=== PATIENT | female | born 1970 | race Caucasian/White ===

== ENCOUNTER → 2018-12-09 | Outpatient (CLI) | payer OTHER ==
--- NOTE | 2018-12-11 14:13 | MM ---
Reason for exam: screening (asymptomatic). Last mammogram was performed 2 years and 7 months ago. History: Patient is postmenopausal. Benign right mammotome panel of the right breast, July 28, 2009. Physical Findings: A clinical breast exam by your physician is recommended on an annual basis and results should be correlated with mammographic findings. MG 3D Screening Mammo W/Cad Bilateral CC and MLO view(s) were taken. XCCL view(s) were taken of the right breast. Prior study comparison: April 29, 2016, bilateral MG screening mammo w CAD. September 04, 2010, CAD bilateral diagnostic mammogram. The breast tissue is heterogeneously dense. This may lower the sensitivity of mammography. Previous mammotome biopsy in the right breast. No significant changes when compared with prior studies. ASSESSMENT: Benign, BI-RAD 2 RECOMMENDATION: Routine screening mammogram of both breasts in 1 year.
== END | disposition home or self-care (01) ==
LOC: RADMAMWWP 13:30
PROVIDERS: ATTEND Family Medicine
DX: Z12.31 Encounter for screening mammogram for malignant neoplasm of breast (principal)
CPT/HCPCS: 77063; 77067

== ENCOUNTER → 2020-02-03 | Outpatient (CLI) | payer OTHER ==
--- NOTE | 2020-02-04 14:45 | MM ---
Reason for exam: screening (asymptomatic). Last mammogram was performed 1 year and 2 months ago. History: Patient is postmenopausal. Benign right mammotome panel of the right breast, July 28, 2009. Physical Findings: A clinical breast exam by your physician is recommended on an annual basis and results should be correlated with mammographic findings. MG Screening Mammo w CAD Bilateral CC and MLO view(s) were taken. Prior study comparison: December 09, 2018, bilateral MG 3d screening mammo w/cad. April 29, 2016, bilateral MG screening mammo w CAD. The breast tissue is heterogeneously dense. This may lower the sensitivity of mammography. Previous mammotome biopsy in the right breast. ASSESSMENT: Benign, BI-RAD 2 RECOMMENDATION: Routine screening mammogram of both breasts in 1 year.
== END | disposition home or self-care (01) ==
LOC: RADMAMWWP 07:13
PROVIDERS: ATTEND Family Medicine
DX: Z12.31 Encounter for screening mammogram for malignant neoplasm of breast (principal)
CPT/HCPCS: 77067

== ENCOUNTER → 2022-06-05 | Outpatient (CLI) | payer OTHER ==
--- NOTE | 2022-06-06 19:30 | MM ---
Reason for Exam: Screening (asymptomatic). Last mammogram was performed 2 year(s) and 4 month(s) ago. Patient History: Menarche at age 15. First Full-Term at age 19. Hysterectomy at age 39. Postmenopausal. Patient has history of breast feeding. 07/28/2009, Benign Core Biopsy on the right side. Risk Values: Vianey 5 year model risk: 1.0%. NCI Lifetime model risk: 8.4%. Prior Study Comparison: 10/31/2005 Right Diagnostic Ultrasound, [facility]. 05/06/2006 Right Diagnostic Mammogram, [facility]. 05/06/2006 Right Diagnostic Ultrasound, [facility]. 11/07/2006 Bilateral Diagnostic Mammogram, [facility]. 07/13/2009 Bilateral Screening Mammogram, [facility]. 07/19/2009 Right Diagnostic Mammogram, [facility]. 09/04/2010 Bilateral Diagnostic Mammogram, [facility]. 04/29/2016 Bilateral Screening Mammogram, [facility]. 12/09/2018 Bilateral Screening Mammogram, [facility]. 02/03/2020 Bilateral Screening Mammogram, [facility]. Tissue Density: The breast tissue is heterogeneously dense. This may lower the sensitivity of mammography. Findings: Analyzed By CAD. Microclip right breast from prior biopsy. There is no suspicious group of microcalcifications or new suspicious mass in either breast. Overall Assessment: Negative, BI-RAD 1 Management: Screening Mammogram of both breasts in 1 year. 1. Patient should continue monthly self breast exams. 2. A clinical breast exam by your physician is recommended on an annual basis. 3. This exam should not preclude additional follow-up of suspicious palpable abnormalities. Electronically signed and approved by: Maximiliano Arnold M.D. Radiologist
== END | disposition home or self-care (01) ==
LOC: RADMAMWWP 16:08
PROVIDERS: ATTEND Family Medicine
DX: Z12.31 Encounter for screening mammogram for malignant neoplasm of breast (principal); Z78.0 Asymptomatic menopausal state
CPT/HCPCS: 77067

== ENCOUNTER 2022-06-13 09:40 | Day surgery (SDC) | payer OTHER ==
[2022-06-11 15:24] VITALS: BMI 33.6
[~2022-06-13 09:40] MED LIST: LACTATED RINGERS 1,000 ML IV SCH
[2022-06-13 10:33] VITALS: RESP 18; TEMP 96.9
[2022-06-13] MEDS ORDERED: ONDANSETRON 4 MG/2 ML VIAL ONE (10:34)
[2022-06-13] MEDS ORDERED: ONDANSETRON 4 MG/2 ML VIAL IVP ONE (10:43)
[2022-06-13] MEDS ORDERED: PROPOFOL 10 MG/ML 20 ML VIAL IV ONE (11:05)
--- NOTE | 2022-06-13 11:07 | P.GSHP ---
History of Present Illness H&P Date: 06/13/22 Chief Complaint: Screening colonoscopy 's is a 52-year-old female who presents today for screening colonoscopy. Patient denies any significant GI complaints. Past Medical History Past Medical History: GERD/Reflux, Hypertension Additional Past Medical History / Comment(s): FIBROMYALGIA, headache, CELIAC History of Any Multi-Drug Resistant Organisms: None Reported Past Surgical History: Hysterectomy Past Anesthesia/Blood Transfusion Reactions: Postoperative Nausea & Vomiting (PONV) Smoking Status: Current every day smoker - Past Family History Mother Family Medical History: Hypertension Medications and Allergies Home Medications Medication Instructions Recorded Confirmed Type Gabapentin [Neurontin] 300 mg PO HS 08/17/15 06/13/22 History Metoprolol Succinate [Toprol XL] 200 mg PO HS 08/17/15 06/13/22 History Omeprazole [PriLOSEC] 20 mg PO HS 08/17/15 06/13/22 History Amitriptyline HCl [Elavil] 50 mg PO HS 06/11/22 06/13/22 History Venlafaxine HCl [Effexor XR] 150 mg PO HS 06/11/22 06/13/22 History amLODIPine [Norvasc] 5 mg PO HS 06/11/22 06/13/22 History lisinopriL 40 mg PO HS 06/11/22 06/13/22 History Allergies Allergy/AdvReac Type Severity Reaction Status Date / Time oxytocin [From Pitocin] Allergy VERY Verified 06/13/22 10:30 HYPOTENSIVE Penicillins Allergy Anaphylaxis Verified 06/13/22 10:30 potassium Allergy Unknown Verified 06/13/22 10:36 Surgical - Exam Vital Signs Temp Pulse Resp BP Pulse Ox 96.9 F L 84 18 126/81 98 06/13/22 10:28 06/13/22 10:28 06/13/22 10:28 06/13/22 10:28 06/13/22 10:28 - General well developed, well nourished, no distress - Eyes PERRL - ENT normal pinna - Neck no masses - Respiratory normal expansion - Abdomen Abdomen: soft, non tender Assessment and Plan Assessment: We'll perform screening colonoscopy
--- NOTE | 2022-06-13 11:24 | P.OP ---
Date of Procedure: 06/13/22 Preoperative Diagnosis: Screening colonoscopy Postoperative Diagnosis: : Left colon polyp Procedure(s) Performed: Colonoscopy Anesthesia: MAC Surgeon: Lazaro Rahman Pathology: other (Left colon polyp) Condition: stable Disposition: PACU Description of Procedure: The patient's placed on the endoscopy table in the lateral position. She received IV sedation. Digital rectal exam was performed. This revealed no ebonized. The flexible colonoscope was then placed patient anus and passed throughout the entire colon. The ileocecal valve was visualized. The cecum, ascending and transverse colon appeared normal. In the left descending colon there was a polyp seen was removed with the cold forcep. Scope was brought back and the sigmoid colon this appeared normal. Scope brought back the rectum and this was normal. Scope was withdrawn for patient.
[2022-06-13 11:37] VITALS: BP 117/76; PULSE 71
== END 2022-06-13 11:58 | disposition home or self-care (01) ==
LOC: ORWHC2ENDO 09:40
PROVIDERS: ATTEND Surgery
DX: Z12.11 Encounter for screening for malignant neoplasm of colon (principal); D12.4 Benign neoplasm of descending colon; K21.9 Gastro-esophageal reflux disease without esophagitis; I10 Essential (primary) hypertension; M79.7 Fibromyalgia; K91.0 Vomiting following gastrointestinal surgery; F17.200 Nicotine dependence, unspecified, uncomplicated; K90.0 Celiac disease; Z90.710 Acquired absence of both cervix and uterus; Z82.49 Family history of ischemic heart disease and other diseases of the circulatory system; Z79.899 Other long term (current) drug therapy; Z79.1 Long term (current) use of non-steroidal anti-inflammatories (NSAID); Z88.0 Allergy status to penicillin; Z88.7 Allergy status to serum and vaccine; Z88.1 Allergy status to other antibiotic agents
CPT/HCPCS: 88305; 45380; J2405; J2704

== ENCOUNTER 2022-07-06 19:55 | Inpatient (IN) | payer OTHER ==
[2022-07-06] MEDS ORDERED: MAGNESIUM SULFATE-D5W PMX 1 GM in DEXTROSE/WATER 1 100ML.BAG IVPB ONE (20:20)
[2022-07-06] MEDS ORDERED: methylPREDNISolone SOD SUCCI 125 MG/2 ML VIAL IV STA (20:23)
--- NOTE | 2022-07-06 20:36 | ED ---
SOB HPI - General Chief Complaint: Shortness of Breath Stated Complaint: Sepsis Time Seen by Provider: 07/06/22 20:00 Source: patient, EMS, RN notes reviewed Mode of arrival: EMS - History of Present Illness Initial Comments: 52-year-old female with a history of smoking but no known history of lung disease or heart disease who since June 29 is had 4 visits to [facility] for various symptoms initially for headache but then later respiratory type symptoms. She presented today ultimately to [facility] for shortness of breath she was evaluated there and found have a left lower lobe pneumonia as well as influenza type A. Rocaltrol totally indicative of a bacterial infection she'll likely both are occurring at same time she also was found have an elevated white blood cell count follow found to be hypokalemic and hyponatremic. She did require BiPAP. She was given vancomycin IV as well as Maxipime. She was transferred here for further evaluation and care. Patient was found to be hypotensive and did require fluids. Upon arrival her blood pressure appeared to lives at. Patient does states she's feeling better at this time. No chest pain MD Complaint: shortness of breath, cough - Related Data Home Medications Medication Instructions Recorded Confirmed Gabapentin [Neurontin] 300 mg PO HS 08/17/15 07/06/22 Metoprolol Succinate [Toprol XL] 200 mg PO HS 08/17/15 07/06/22 Omeprazole [PriLOSEC] 20 mg PO BID 08/17/15 07/06/22 Amitriptyline HCl [Elavil] 10 mg PO HS 06/11/22 07/06/22 Venlafaxine HCl [Effexor XR] 150 mg PO HS 06/11/22 07/06/22 amLODIPine [Norvasc] 5 mg PO HS 06/11/22 07/06/22 lisinopriL 40 mg PO HS 06/11/22 07/06/22 Zolpidem [Ambien] 5 mg PO HS PRN 07/06/22 07/06/22 traMADol HCL 50 mg PO Q6H PRN 07/06/22 07/06/22 Allergies Allergy/AdvReac Type Severity Reaction Status Date / Time oxytocin [From Pitocin] Allergy VERY Verified 07/06/22 21:13 HYPOTENSIVE Penicillins Allergy Anaphylaxis Verified 07/06/22 21:13 potassium Allergy Unknown Verified 07/06/22 21:13 Review of Systems ROS Statement: Those systems with pertinent positive or pertinent negative responses have been documented in the HPI. ROS Other: All systems not noted in ROS Statement are negative. Past Medical History Past Medical History: GERD/Reflux, Hypertension Additional Past Medical History / Comment(s): FIBROMYALGIA, headache, cilliac History of Any Multi-Drug Resistant Organisms: None Reported Past Surgical History: Hysterectomy Past Anesthesia/Blood Transfusion Reactions: Postoperative Nausea & Vomiting (PONV) Past Psychological History: No Psychological Hx Reported Smoking Status: Former smoker Past Alcohol Use History: None Reported - Past Family History Mother Family Medical History: Hypertension General Exam - General Exam Comments Initial Comments: This a well-developed well-nourished awake alert oriented 4 female demonstrating cough. She is on BiPAP at this time. General appearance: alert, anxious, in distress Head exam: Present: atraumatic, normocephalic, normal inspection Eye exam: Present: normal appearance, PERRL, EOMI. Absent: scleral icterus, conjunctival injection, periorbital swelling ENT exam: Present: normal exam, mucous membranes moist Neck exam: Present: normal inspection, full ROM, other (ALLERGIES or bruits). Absent: tenderness, meningismus, lymphadenopathy Respiratory exam: Present: wheezes (Of lower lobe wheezes or rhonchi.), decreased breath sounds. Absent: respiratory distress, rales, rhonchi, stridor Cardiovascular Exam: Present: normal rhythm, tachycardia, normal heart sounds. Absent: systolic murmur, diastolic murmur, rubs, gallop, clicks GI/Abdominal exam: Present: soft, normal bowel sounds. Absent: distended, tenderness, guarding, rebound, rigid Extremities exam: Present: normal inspection, full ROM, normal capillary refill. Absent: tenderness, pedal edema, joint swelling, calf tenderness Back exam: Present: normal inspection Neurological exam: Present: alert, oriented X3, CN II-XII intact Psychiatric exam: Present: normal affect, normal mood Skin exam: Present: warm, intact, normal color, diaphoretic. Absent: rash Course Vital Signs 07/06/22 07/06/22 07/06/22 20:07 20:14 22:01 Temperature 97.2 F L Pulse Rate 104 H 100 Respiratory 34 H 18 Rate Blood Pressure 101/64 116/69 O2 Sat by Pulse 95 96 Oximetry Fraction of 50 Inspired Oxygen (FIO2) - Reevaluation(s) Reevaluation #1: 07/06/22 20:36 In addition to the care provided at [facility] patient will get IV magnesium with a level drawn prior. Also IV steroids. I did review the materials presented by paramedics from [facility] patient did have an elevated d-dimer but a negative CT for pulmonary embolism. Medical Decision Making - Medical Decision Making Reevaluation patient several occasions reveals she does feel improved she still on BiPAP but is laboring last with respect to breathing no signs appear to be stable at this time. I did discuss the case with Jose Cid covering for Dr. leach patient be admitted with consultation by Dr. Gorman and infectious disease. Was pt. sent in by a medical professional or institution? @ -Yes transfer from [facility] [by , PA, SATURATION EQUIPMENT OPERATOR, urgent care, hospital, or usp] Did you speak to anyone other than the patient for history? @ Paramedics upon arrival-[EMS, parent, family, police, friend?] Did you review nursing and triage notes? @ Yes I agree with the nursing note-[agree or disagree, why?] Were old charts reviewed? @ Outside facility materials were reviewed by me-[outside hosp., previous admissions, EMS record, old EKG, old radiological studies, urgent care reports/EKGs, usp records?] Differential Diagnosis? @ Pneumonia, bronchospasm, COPD exacerbation, hypotensive episode-[chest pain, altered mental status abdominal pain women, abdominal pain men, vaginal bleeding, weakness, fever, dyspnea, syncope, headache, dizziness, GI bleed, back pain, seizure] EKG interpreted by me (3pts min.)? @ yes-[none] X-rays interpreted by me (1pt min.)? @ Yes -[none] CT interpreted by me (1pt min.)? @ Yes -[none] U/S interpreted by me (1pt. min.)? @ -[none] What testing was considered but not performed? (CT, X-rays, U/S, labs)? Why? @ None [CT, X-rays, U/S, labs? Why?] What meds were considered but not given? Why? @ -[none] Did you discuss the management of the patient with other professionals? @ Yes with Jose Orlando also with the sending physician-[professionals i.e. Dr, PA, SATURATION EQUIPMENT OPERATOR, Lab, RT, Psych Nurse, Critical Systems Technician, Folding Machine Setter, Teacher, Media Technician, nurse case management? Give summary] Did you reconcile home meds? @ -[none] Was smoking cessation discussed for >3mins.? @ -[none] Was critical care preformed (if so, how long)? @ -[none] Were there social determinants of health that impacted care today? How? (Homelessness, low income, unemployed, alcoholism, drug addiction, transportation, low edu. Level, literacy, decrease access to med. care, retirement, rehab)? @ -[Homelessness, low income, unemployed, alcoholism, drug addiction, transportation, low edu. Level, literacy, decrease access to med. care, retirement, rehab?] Was there de-escalation of care discussed even if they declined? (Discuss DNR or withdrawal of care, Hospice)? @ -[Discuss DNR or withdrawal of care, Hospice?] What co-morbidities impacted this encounter? (DM, HTN, Smoking, COPD, CAD, Cancer, CVA, Hep., AIDS, mental health diagnosis, sleep apnea, morbid obesity)? @ -[DM, HTN, Smoking, COPD, CAD, Cancer, CVA, Hep., AIDS, mental health richard gnosis, sleep apnea, morbid obesity?] Was patient admitted / discharged? @ -[hospital course] Undiagnosed new problem with uncertain prognosis? @ -[none] Drug Therapy requiring intensive monitoring for toxicity (Heparin, Nitro, Insulin, Cardizem)? @ -[none] Were any procedures done? @ -[none] Diagnosis/symptom? @ Left pleural pneumonia, influenza A, dehydration, hypotensive episode- [default] Acute, or Chronic, or Acute on Chronic? @ Acute -[default] Uncomplicated (without systemic symptoms) or Complicated (systemic symptoms)? @ -[default] Side effects of treatment? @ -[none] Exacerbation, Progression, or Severe Exacerbation] @ -[no] Poses a threat to life or bodily function? @ Potential threat if untreated-[no] - Lab Data Lab Results 07/06/22 Range/Units 21:02 Magnesium 2.1 (1.6-2.3) mg/dL - EKG Data -: EKG Interpreted by Me EKG Comments: EKG interpreted by me shows a sinus rhythm of 109 sinus tachycardia. Interval 134 QRS duration 86 QT since QTC 320/[address]-T wave changes - Radiology Data Interpreted by me: I did interpret the imaging sent from the hospital evidence a left lower lobe infiltrate no evidence of PE. Disposition Clinical Impression: Left lower lobe pneumonia, Influenza A, Hypotensive episode, Dehydration Disposition: ADMITTED IP TO THIS HOSP Condition: Fair Referrals: Keri Anderson DO [Primary Care Provider] - 1-2 days Decision Date: 07/06/22 Decision Time: 22:00
[2022-07-06] MEDS ORDERED: KETOROLAC 15 MG/ML 1 ML VIAL IVP STA (20:43)
[2022-07-06] MEDS ORDERED: PNEUMONIA PROTOCOL UTILIZED 1 EACH MISC PO PRN (22:38)
[2022-07-06] MEDS ORDERED: VANCOMYCIN IV PER PHARMACY 1 EACH MISC MISCELLANE PRN (22:41)
[2022-07-06] MEDS ORDERED: ZOLPIDEM 5 MG TAB PO PRN (22:44)
[2022-07-06] MEDS ORDERED: VANCOMYCIN 1,500 MG in SODIUM CHLORIDE 0.9% 500 ML 500 ML IVPB ONE (23:00)
[2022-07-06] MEDS: SODIUM CHLORIDE 0.9% 1,000 ML IV SCH (23:39)
[2022-07-06 23:40] LABS: African American GFR (CKD) >90 (>60 ml/min/1.73 sqM); Non-African American GFR(CKD) >90 (>60 ml/min/1.73 sqM)
[2022-07-07] MEDS ORDERED: CEFEPIME 2 GM in SODIUM CHLORIDE 0.9% 100 ML IVPB SCH (01:00)
[2022-07-07] MEDS ORDERED: VANCOMYCIN 1,500 MG in SODIUM CHLORIDE 0.9% 500 ML 500 ML IVPB SCH ×2 (01:00→11:00)
[2022-07-07] MEDS ORDERED: methylPREDNISolone SOD SUCCI 125 MG/2 ML VIAL IV SCH (03:00)
[2022-07-07] MEDS: IPRATROPIUM-ALBUTEROL 3 ML NEB INHALATION SCH ×6 (03:31→20:41)
[2022-07-07] MEDS: METOPROLOL SUCCINATE (ER) 100 MG TAB.ER.24H PO SCH ×2 (04:50→22:05)
[2022-07-07] MEDS: GABAPENTIN 300 MG CAP PO SCH ×2 (04:50→20:59)
[2022-07-07] MEDS: lisinopriL 20 MG TAB PO SCH ×2 (04:50→20:59)
[2022-07-07] MEDS: amLODIPine 5 MG TAB PO SCH ×2 (04:50→20:59)
[2022-07-07] MEDS: VENLAFAXINE HCL ER 150 MG CAP PO SCH ×2 (04:50→22:04)
[2022-07-07] MEDS: AMITRIPTYLINE HCL 10 MG TAB PO SCH ×2 (04:51→22:05)
[2022-07-07 06:06] LABS: Basophils % (A) 0 %; Eosinophils % (A) 0 %; HGB 11.1 gm/dL (11.4-16.0); Lymphocytes # (A) 0.4 k/uL (1.0-4.8); Lymphocytes % (A) 5 %; MCH 33.1 pg (25.0-35.0); MCHC 33.6 g/dL (31.0-37.0); MCV 98.6 fL (80.0-100.0); Mean Platelet Volume 8.4; Monocytes # (A) 0.1 k/uL (0-1.0); Monocytes % (A) 2 %; Neutrophils # (A) 6.9 k/uL (1.3-7.7); Neutrophils % (A) 92 %; Platelet Count 263 k/uL (150-450); RBC 3.35 m/uL (3.80-5.40); RDW 12.6 % (11.5-15.5); WBC 7.6 k/uL (3.8-10.6)
[2022-07-07 06:17] LABS: ALT 16 U/L (4-34); AST 20 U/L (14-36); African American GFR (CKD) >90 (>60 ml/min/1.73 sqM); Albumin 3.1 g/dL (3.5-5.0); Alkaline Phosphatase 69 U/L (38-126); Anion Gap 9 mmol/L; Blood Urea Nitrogen 16 mg/dL (7-17); Carbon Dioxide 24 mmol/L (22-30); Chloride 99 mmol/L (98-107); Glucose 166 mg/dL (74-99); Non-African American GFR(CKD) >90 (>60 ml/min/1.73 sqM); Potassium 3.4 mmol/L (3.5-5.1); Sodium 132 mmol/L (137-145); Total Bilirubin 0.7 mg/dL (0.2-1.3); Total Protein 6.1 g/dL (6.3-8.2)
[2022-07-07] MEDS: SODIUM CHLORIDE 0.9% 1,000 ML IV SCH ×2 (06:36→13:57)
--- NOTE | 2022-07-07 07:53 | XR ---
EXAMINATION TYPE: XR chest 1V DATE OF EXAM: 07/07/2022 5:45 AM COMPARISON: 07/04/2022 TECHNIQUE: XR chest 1V Portable AP radiograph of the chest. CLINICAL INDICATION:Female, 52 years old with history of pneumonia; FINDINGS: Lungs/Pleura: New airspace opacities in left mid and left lower lung as well as the right lung base a irspace opacities. There is no evidence of pleural effusion, or pneumothorax. Pulmonary vascularity: Unremarkable. Heart/mediastinum: Cardiomediastinal silhouette is unremarkable. Musculoskeletal: No acute osseous pathology. IMPRESSION: Generalized hazy appearance of the left mid and lower lung on today's exam. New from 07/04/2022. Viry elate for airspace disease. Right basilar airspace opacities are also new. Consider aspiration.
[2022-07-07] MEDS: PANTOPRAZOLE 40 MG TABLET PO SCH ×2 (08:05→08:06)
[2022-07-07] MEDS: AZITHROMYCIN 500 MG TAB PO SCH (08:52)
[2022-07-07] MEDS: traMADol 50 MG TAB PO PRN ×3 (08:55→20:28)
[2022-07-07] MEDS ORDERED: OSELTAMIVIR 75 MG CAP PO SCH (09:00)
--- NOTE | 2022-07-07 11:48 | P.CNPUL ---
History of Present Illness Consult date: 07/07/22 Requesting physician: Zach E Sheet Reason for consult: dyspnea, cough, hypoxemia, pneumonia, abnormal CXR/CT Chief complaint: Cough, shortness of breath, chest congestion. History of present illness: Pulmonary consult dated 07/07/2022. 52-year-old female who sees a family physician in [place], [place], who went to an outside hospital, i.e. [facility], for complaints of chest congestion, shortness of breath, cough, and generally just not feeling well. The patient has not been feeling well from the day before [place]. She is apparently seeing a number of different doctors at various facilities, and more recently, because of worsening symptoms, went to [facility], and was transferred down to our hospital, for additional monitoring and management. The patient apparently did test positive for influenza A. Also, chest x-ray showed an extensive pneumonia, left lower lobe. She apparently was placed on BiPAP initially in the emergency room, with settings of 8 over 4 and 40%. She's currently on 4 L. We see her today in room #6, down in the emergency department. The patient is currently on Rocephin and Zithromax. We discontinue the Tamiflu. It is not indicated in this patient. She apparently has a history of gastroesophageal reflux disease, hypertension, fibromyalgia, chronic headache, and celiac disease. She is a previous smoker. White count 7.6, hemoglobin 11.1, hematocrit 33, and platelet count of 263,000. Sodium 132, potassium 3.4, chlorides 99, CO2 24, BUN 16, creatinine 0.41. Chest x-ray shows an extensive pneumonia, and the left midlung left lower lobe. She also may have a few scattered opacities in the right lower lobe. Review of Systems REVIEW OF SYSTEMS: CONSTITUTIONAL: Weakness and fatigue. NEUROLOGIC: Headache. HEENT: [ Negative.] CARDIAC: [Negative.] PULMONARY: Shortness of breath, cough, chest congestion, and wheezing. GI: [Negative.] : [Negative.] RHEUMATOLOGIC: [ Negative.] IMMUNOLOGIC: [ Negative.] ENDOCRINE: [Negative. ] DERMATOLOGIC: [Negative.] Past Medical History Past Medical History: GERD/Reflux, Hypertension Additional Past Medical History / Comment(s): FIBROMYALGIA, headache, cilliac History of Any Multi-Drug Resistant Organisms: None Reported Past Surgical History: Hysterectomy Past Anesthesia/Blood Transfusion Reactions: Postoperative Nausea & Vomiting (PONV) Past Psychological History: No Psychological Hx Reported Smoking Status: Former smoker Past Alcohol Use History: None Reported - Past Family History Mother Family Medical History: Hypertension Medications and Allergies Home Medications Medication Instructions Recorded Confirmed Type Gabapentin [Neurontin] 300 mg PO HS 08/17/15 07/06/22 History Metoprolol Succinate [Toprol XL] 200 mg PO HS 08/17/15 07/06/22 History Omeprazole [PriLOSEC] 20 mg PO BID 08/17/15 07/06/22 History Amitriptyline HCl [Elavil] 10 mg PO HS 06/11/22 07/06/22 History Venlafaxine HCl [Effexor XR] 150 mg PO HS 06/11/22 07/06/22 History amLODIPine [Norvasc] 5 mg PO HS 06/11/22 07/06/22 History lisinopriL 40 mg PO HS 06/11/22 07/06/22 History Zolpidem [Ambien] 5 mg PO HS PRN 07/06/22 07/06/22 History traMADol HCL 50 mg PO Q6H PRN 07/06/22 07/06/22 History Allergies Allergy/AdvReac Type Severity Reaction Status Date / Time oxytocin [From Pitocin] Allergy VERY Verified 07/06/22 21:13 HYPOTENSIVE Penicillins Allergy Anaphylaxis Verified 07/06/22 21:13 potassium Allergy Unknown Verified 07/06/22 21:13 Physical Exam Osteopathic Statement: *. No significant issues noted on an osteopathic structural exam other than those noted in the History and Physical/Consult. Vitals: Vital Signs Temp Pulse Pulse Resp BP BP Pulse Ox 07/07/22 11:29 90 18 07/07/22 11:17 88 18 07/07/22 08:19 94 L 07/07/22 08:02 97.8 F 80 22 134/80 97 07/07/22 08:00 97.8 F 77 21 118/78 94 L 07/07/22 06:37 71 18 135/77 98 07/07/22 05:03 72 20 145/67 95 07/07/22 04:32 70 18 136/75 98 07/07/22 03:45 75 07/07/22 03:35 73 07/07/22 03:32 07/07/22 01:03 75 20 123/76 98 07/07/22 00:38 07/06/22 23:48 85 28 H 108/64 98 07/06/22 22:01 100 18 116/69 96 07/06/22 20:14 07/06/22 20:07 97.2 F L 104 H 34 H 101/64 95 FiO2 07/07/22 11:29 07/07/22 11:17 07/07/22 08:19 40 07/07/22 08:02 07/07/22 08:00 07/07/22 06:37 07/07/22 05:03 07/07/22 04:32 07/07/22 03:45 07/07/22 03:35 07/07/22 03:32 40 07/07/22 01:03 07/07/22 00:38 45 07/06/22 23:48 07/06/22 22:01 07/06/22 20:14 50 07/06/22 20:07 Intake and Output 07/06/22 07/07/22 07/07/22 22:59 06:59 14:59 Other: # Voids 1 Weight 82.1 kg 82.1 kg No acute distress, oriented 3. The patient has a very wet congested cough. This no conversational dyspnea or use of accessory muscles. HEENT examination is grossly unremarkable. Neck supple. Full range of motion. No adenopathy thyromegaly or neck vein distention. Cardiovascular examination reveals regular rhythm rate. S1-S2 normal. No S3 or S4. No discernible murmur noted. Heart rate 90 bpm. Lungs reveal scattered bilateral rhonchi. Breath sounds equal bilaterally. Minimal crackles. No wheezes. Breath sounds equal bilaterally. 4 L saturation is 97%. Abdomen soft bowel sounds are heard. No masses or tenderness. Extremities are intact. No cyanosis clubbing or edema. Skin is without rash or lesion. Neurologic examination is brief but nonfocal. Results - Laboratory Findings CBC and BMP: 07/07/22 05:24 07/07/22 05:24 Abnormal lab findings: Abnormal Labs 07/07/22 07/07/22 05:24 05:24 RBC 3.35 L Hgb 11.1 L Hct 33.0 L Lymphocytes # 0.4 L Sodium 132 L Potassium 3.4 L Creatinine 0.41 L Glucose 166 H Calcium 8.0 L Total Protein 6.1 L Albumin 3.1 L - Diagnostic Findings Chest x-ray: image reviewed Assessment and Plan Assessment: Acute respiratory illness, secondary to influenza A infection, and left lower lo be pneumonia. Acute hypoxemic respiratory failure, secondary to above. History of hypertension. History of gastroesophageal reflux disease. History of fibromyalgia. History of chronic headache. History of celiac disease. Prior history of tobacco use. Plan: Plan dated 07/07/2022. The patient is on Rocephin and azithromycin. She's getting breathing treatments with albuterol sulfate and ipratropium bromide. Vancomycin was discontinued. Tamiflu was discontinued. The patient does not need corticosteroids at this time. We'll continue to follow and make recommendations where appropriate. Labs, x-rays, and medications are reviewed. The patient was seen in the emergency department. Time with Patient: Greater than 30
[2022-07-07] MEDS ORDERED: POTASSIUM CHLORIDE ER 20 MEQ TAB.ER PO STA (13:08)
--- NOTE | 2022-07-07 13:14 | P.HPIM ---
History of Present Illness H&P Date: 07/07/22 This is a 52 year old female medical history of hypertension, GERD/Reflux, fibromyalgia, who is a current pack per day smoker. 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 She has been in the ER/Urgent care on multiple occasions this last week with reported headache and overall not feeling well. This last time she reported to the [place] ER she was found to be significantly short of breath with reports of fever/chills, shortness of breath, cough with yellow/green sputum, and reports decreased appetite and nausea. Denies chest pain. There she was found to have elevated procalcitonin at 3.6, as well as white count of 13.9. D-Dimer was also elevated and chest CT angiography performed showing left lower lobe pneumonia, no pulmonary embolism detected. Found to be positive for influenza A and also had low blood pressure and low sodium. She was started on IV antibiotics and bipap and transferred to [facility] ER for further evaluation and work up. Follow up chest xray at [facility] showing hazy appearance of the left mid and lower lung which appears new from July 04 chest x-ray. There is a right basilar airspace opacity possibly some aspiration. Sodium is now 132, potassium 3.4. White count 7.6. Requiring 4 to 5 L of oxygen. Infectious disease and pulmonary services are consulted. Resumed on appropriate home medications. Saline will be decreased to 75 mls/hr. REVIEW OF SYSTEMS: CONSTITUTIONAL: Reports fever/ chills HEENT: No recent visual problems or hearing problems. Denied any sore throat. CARDIOVASCULAR: No chest pain, orthopnea, PND, no palpitations, no syncope. PULMONARY: Reports shortness of breath, productive cough no hemoptysis. GASTROINTESTINAL: No diarrhea,no vomiting, no abdominal pain. Reports nausea and decreased appetite. NEUROLOGICAL: No headaches, no weakness, no numbness. HEMATOLOGICAL: Denies any bleeding or petechiae. GENITOURINARY: Denies any burning micturition, frequency, or urgency. MUSCULOSKELETAL/RHEUMATOLOGICAL: Denies any joint pain, swelling, or any muscle pain. ENDOCRINE: Denies any polyuria or polydipsia. The rest of the 14-point review of systems is negative. PHYSICAL EXAMINATION: GENERAL: The patient is alert and oriented x3, not in any acute distress. Well developed, well nourished. Currently on 5L nasal cannula HEENT: Pupils are round and equally reacting to light. EOMI. No scleral icterus. No conjunctival pallor. Normocephalic, atraumatic. No pharyngeal erythema. No thyromegaly. CARDIOVASCULAR: S1 and S2 present. No murmurs, rubs, or gallops. PULMONARY: Coarse scattered rhonchi throughout ABDOMEN: Soft, nontender, nondistended, normoactive bowel sounds. No palpable organomegaly. MUSCULOSKELETAL: No joint swelling or deformity. EXTREMITIES: No cyanosis, clubbing, or pedal edema. NEUROLOGICAL: Gross neurological examination did not reveal any focal deficits. SKIN: No rashes. Assessment and plan Assessment Acute hypoxemic respiratory failure secondary to influenza A with pneumonia and sepsis currently requiring 5 L of nasal cannula Hyponatremia, hypovolemic patient is receiving normal saline History hypertension Fibromyalgia with chronic pain Gastroesophageal reflux disease Celiac disease Current tobacco use, 1 pack per day GI prophylaxis DVT prophylaxis Plan Continue IV fluids Repeat sodium tomorrow Continue empiric antibiotics Pulmonary and Infectious disease services have been consulted Resume appropriate home medications Continue all other supportive care The impression and plan of care has been dictated by Aysha Hernandez Nurse Practitioner as directed. Dr. Henry MD I have performed a history and physical examination and medical decision making of this patient, discussed the same with the dictator, and agree with the dictators assessment and plan as written, documented as a scribe. Based on total visit time, I have performed more than 50% of this visit. Past Medical History Past Medical History: GERD/Reflux, Hypertension Additional Past Medical History / Comment(s): FIBROMYALGIA, headache, cilliac History of Any Multi-Drug Resistant Organisms: None Reported Past Surgical History: Hysterectomy Past Anesthesia/Blood Transfusion Reactions: Postoperative Nausea & Vomiting (PONV) Past Psychological History: No Psychological Hx Reported Smoking Status: Former smoker Past Alcohol Use History: None Reported - Past Family History Mother Family Medical History: Hypertension Medications and Allergies Home Medications Medication Instructions Recorded Confirmed Type Gabapentin [Neurontin] 300 mg PO HS 08/17/15 07/06/22 History Metoprolol Succinate [Toprol XL] 200 mg PO HS 08/17/15 07/06/22 History Omeprazole [PriLOSEC] 20 mg PO BID 08/17/15 07/06/22 History Amitriptyline HCl [Elavil] 10 mg PO HS 06/11/22 07/06/22 History Venlafaxine HCl [Effexor XR] 150 mg PO HS 06/11/22 07/06/22 History amLODIPine [Norvasc] 5 mg PO HS 06/11/22 07/06/22 History lisinopriL 40 mg PO HS 06/11/22 07/06/22 History Zolpidem [Ambien] 5 mg PO HS PRN 07/06/22 07/06/22 History traMADol HCL 50 mg PO Q6H PRN 07/06/22 07/06/22 History Allergies Allergy/AdvReac Type Severity Reaction Status Date / Time oxytocin [From Pitocin] Allergy VERY Verified 07/06/22 21:13 HYPOTENSIVE Penicillins Allergy Anaphylaxis Verified 07/06/22 21:13 potassium Allergy Unknown Verified 07/06/22 21:13 Physical Exam Vitals: Vital Signs Temp Pulse Resp BP Pulse Ox FiO2 07/07/22 08:19 94 L 40 07/07/22 08:02 97.8 F 80 22 134/80 97 07/07/22 06:37 71 18 135/77 98 07/07/22 05:03 72 20 145/67 95 07/07/22 04:32 70 18 136/75 98 07/07/22 03:45 75 07/07/22 03:35 73 07/07/22 03:32 40 07/07/22 01:03 75 20 123/76 98 07/07/22 00:38 45 07/06/22 23:48 85 28 H 108/64 98 07/06/22 22:01 100 18 116/69 96 07/06/22 20:14 50 07/06/22 20:07 97.2 F L 104 H 34 H 101/64 95 Intake and Output 07/06/22 07/07/22 07/07/22 22:59 06:59 14:59 Other: Weight 82.1 kg 82.1 kg Results CBC & Chem 7: 07/07/22 05:24 07/07/22 05:24 Labs: Abnormal Lab Results - Last 24 Hours (Table) 07/07/22 07/07/22 Range/Units 05:24 05:24 RBC 3.35 L (3.80-5.40) m/uL Hgb 11.1 L (11.4-16.0) gm/dL Hct 33.0 L (34.0-46.0) % Lymphocytes # 0.4 L (1.0-4.8) k/uL Sodium 132 L (137-145) mmol/L Potassium 3.4 L (3.5-5.1) mmol/L Creatinine 0.41 L (0.52-1.04) mg/dL Glucose 166 H (74-99) mg/dL Calcium 8.0 L (8.4-10.2) mg/dL Total Protein 6.1 L (6.3-8.2) g/dL Albumin 3.1 L (3.5-5.0) g/dL Thrombosis Risk Factor Assmnt - Choose All That Apply Any of the Below Risk Factors Present?: Yes Each Factor Represents 1 point: Age 41-60 years, Obesity (BMI >25) Other Risk Factors: No Other congenital or acquired thrombophilia - If yes, enter type in comment: No Thrombosis Risk Factor Assessment Total Risk Factor Score: 2 Thrombosis Risk Factor Assessment Level: Low Risk Assessment and Plan Time with Patient: Less than 30
[2022-07-07] MEDS ORDERED: POTASSIUM CHLORIDE ER 20 MEQ TAB.ER PO ONE (14:00)
[2022-07-08] MEDS: KETOROLAC 15 MG/ML 1 ML VIAL IVP PRN ×3 (00:35→13:38)
[2022-07-08] MEDS: IPRATROPIUM-ALBUTEROL 3 ML NEB INHALATION SCH ×7 (00:47→23:44)
[2022-07-08] MEDS: SODIUM CHLORIDE 0.9% 1,000 ML IV SCH ×2 (06:39→21:10)
[2022-07-08] MEDS: PANTOPRAZOLE 40 MG TABLET PO SCH (06:39)
[2022-07-08] MEDS: AZITHROMYCIN 500 MG TAB PO SCH (08:26)
[2022-07-08 09:02] LABS: HCT 29.6 % (37.2-46.3); HGB 9.9 g/dL (12.0-15.0); MCHC 33.4 g/dL (32.0-37.0); MCV 95.8 fL (80.0-97.0); Mean Platelet Volume 9.8 fL (9.5-12.2); NRBC Per 100 WBC 0 /100 WBCS (0.0-0.0); Platelet Count 327 X 10*3/uL (140-440); RBC 3.09 X 10*6/uL (4.10-5.20); RDW 13.2 % (11.5-14.5); WBC 13.47 X 10*3/uL (4.50-10.00)
[2022-07-08 09:33] LABS: African American GFR (CKD) 128.1 (60.0-200.0); Albumin 3.1 g/dL (3.8-4.9); Albumin/Globulin Ratio 1.15 (1.60-3.17); Anion Gap 8.9 mmol/L (10.00-18.00); BUN/Creat Ratio 27.6 Ratio (12.00-20.00); Blood Urea Nitrogen 13.8 mg/dL (9.0-27.0); Calcium 8.9 mg/dL (8.7-10.3); Carbon Dioxide 27.1 mmol/L (20.0-27.5); Globulin 2.7 g/dL (1.6-3.3); Magnesium 2.3 mg/dL (1.5-2.4); Non-African American GFR(CKD) 110.5 (60.0-200.0); Potassium 3.8 mmol/L (3.5-5.5); Total Bilirubin 0.3 mg/dL (0.30-1.20); Total Protein 5.8 g/dL (6.2-8.2)
--- NOTE | 2022-07-08 09:53 | P.CONS ---
History of Present Illness - Reason for Consult Consult date: 07/07/22 Influenza A, left lower lobe pneumonia Requesting physician: Raudel Rose - Chief Complaint Increasing shortness of breath since - History of Present Illness Patient is a 52-year-old female with a past medical history pertinent for hypertension GERD started having a problem with increasing shortness of breath and coughing symptom has been going on since and apparently has been evaluated in different facilities on different occasion patient did went to [facility] last night for evaluation of increasing shortness of breath patient also have a cough which has been moderate in intensity with occasional sputum production no hemoptysis no pleuritic pain patient denies having any nausea or vomiting no abdominal pain or diarrhea admitted to the hospital the patient was diagnosed with acute influenza A and chest x-ray did shows extensive pneumonia patient did received IV antibiotics was placed on a BiPAP and the patient was sent to this facility for further management on presentation to this facility the patient has been afebrile patient is currently on 4 L nasal cannula satting around 98% patient did have a normal white count kidney function has been normal liver enzymes are normal chest x-ray at this facility generalized hazy appearance of the left mid and lower lung correlate for airspace disease patient was started on Rocephin and Zithromax Tamiflu was discontinued infectious disease was consulted for further management of antibiotic therapy patient did receive a dose of vancomycin in the ER as well Review of Systems Positive point has been mentioned in the HPI rest of the systems are negative Past Medical History Past Medical History: GERD/Reflux, Hypertension Additional Past Medical History / Comment(s): FIBROMYALGIA, headache, cilliac History of Any Multi-Drug Resistant Organisms: None Reported Past Surgical History: Hysterectomy Past Anesthesia/Blood Transfusion Reactions: Postoperative Nausea & Vomiting (PONV) Past Psychological History: No Psychological Hx Reported Smoking Status: Former smoker Past Alcohol Use History: None Reported - Past Family History Mother Family Medical History: Hypertension Medications and Allergies Home Medications Medication Instructions Recorded Confirmed Type Gabapentin [Neurontin] 300 mg PO HS 08/17/15 07/06/22 History Metoprolol Succinate [Toprol XL] 200 mg PO HS 08/17/15 07/06/22 History Omeprazole [PriLOSEC] 20 mg PO BID 08/17/15 07/06/22 History Amitriptyline HCl [Elavil] 10 mg PO HS 06/11/22 07/06/22 History Venlafaxine HCl [Effexor XR] 150 mg PO HS 06/11/22 07/06/22 History amLODIPine [Norvasc] 5 mg PO HS 06/11/22 07/06/22 History lisinopriL 40 mg PO HS 06/11/22 07/06/22 History Zolpidem [Ambien] 5 mg PO HS PRN 07/06/22 07/06/22 History traMADol HCL 50 mg PO Q6H PRN 07/06/22 07/06/22 History Allergies Allergy/AdvReac Type Severity Reaction Status Date / Time oxytocin [From Pitocin] Allergy VERY Verified 07/06/22 21:13 HYPOTENSIVE Penicillins Allergy Anaphylaxis Verified 07/06/22 21:13 potassium Allergy Unknown Verified 07/06/22 21:13 Physical Exam Vitals: Vital Signs Temp Pulse Pulse Resp BP BP Pulse Ox 07/07/22 11:17 88 18 07/07/22 08:19 94 L 07/07/22 08:02 97.8 F 80 22 134/80 97 07/07/22 08:00 97.8 F 77 21 118/78 94 L 07/07/22 06:37 71 18 135/77 98 07/07/22 05:03 72 20 145/67 95 07/07/22 04:32 70 18 136/75 98 07/07/22 03:45 75 07/07/22 03:35 73 07/07/22 03:32 07/07/22 01:03 75 20 123/76 98 07/07/22 00:38 07/06/22 23:48 85 28 H 108/64 98 07/06/22 22:01 100 18 116/69 96 07/06/22 20:14 07/06/22 20:07 97.2 F L 104 H 34 H 101/64 95 FiO2 07/07/22 11:17 07/07/22 08:19 40 07/07/22 08:02 07/07/22 08:00 07/07/22 06:37 07/07/22 05:03 07/07/22 04:32 07/07/22 03:45 07/07/22 03:35 07/07/22 03:32 40 07/07/22 01:03 07/07/22 00:38 45 07/06/22 23:48 07/06/22 22:01 07/06/22 20:14 50 07/06/22 20:07 Intake and Output 07/06/22 07/07/22 07/07/22 22:59 06:59 14:59 Other: # Voids 1 Weight 82.1 kg 82.1 kg GENERAL DESCRIPTION: Middle-aged female lying in bed, no distress. No tachypnea or accessory muscle of respiration use. HEENT: Shows Pallor , no scleral icterus. Oral mucous membrane is dry. No pharyngeal erythema or thrush NECK: Trachea central, no thyromegaly. LUNGS: Unlabored breathing. Coarse breath sounds bilaterally with occasional wheeze HEART: S1, S2, regular rate and rhythm. No loud murmur ABDOMEN: Soft, no tenderness , guarding or rigidity, no organomegaly EXTREMITIES: No edema of feet. SKIN: No rash, no masses palpable. NEUROLOGICAL: The patient is awake, alert, oriented x3, mood and affect normal. Results CBC & Chem 7: 07/11/22 06:05 07/11/22 06:05 Labs: Abnormal Lab Results - Last 24 Hours (Table) 07/07/22 07/07/22 Range/Units 05:24 05:24 RBC 3.35 L (3.80-5.40) m/uL Hgb 11.1 L (11.4-16.0) gm/dL Hct 33.0 L (34.0-46.0) % Lymphocytes # 0.4 L (1.0-4.8) k/uL Sodium 132 L (137-145) mmol/L Potassium 3.4 L (3.5-5.1) mmol/L Creatinine 0.41 L (0.52-1.04) mg/dL Glucose 166 H (74-99) mg/dL Calcium 8.0 L (8.4-10.2) mg/dL Total Protein 6.1 L (6.3-8.2) g/dL Albumin 3.1 L (3.5-5.0) g/dL Assessment and Plan (1) Influenza A Current Visit: Yes Status: Acute Code(s): J10.1 - FLU DUE TO OTH IDENT INFLUENZA VIRUS W OTH RESP MANIFEST SNOMED Code(s): 772999066 (2) Left lower lobe pneumonia Current Visit: Yes Status: Acute Code(s): J18.9 - PNEUMONIA, UNSPECIFIED ORGANISM SNOMED Code(s): 597640797 Plan: 1patient presented to hospital with increasing shortness of breath cough symptom has been going on for more than a week now this patient with likely acute influenza a and possible component of secondary bacterial pneumonia patient has been more than 5 days of symptom onset as well as influenza and not ideal candidate for Tamiflu which has been discontinued. 2we will obtain a sputum for gram stain and culture. 3patient to continue with Rocephin and Zithromax We will follow on clinical condition and cultures to further adjust medication if needed Thank you for this consultation we will follow the patient along with you Time with Patient: Greater than 30
[2022-07-08] MEDS ORDERED: VANCOMYCIN TROUGH DUE 1 EACH MISC MISCELLANE ONE (10:00)
[2022-07-08 10:21] LABS: Basophils # (A) 0.03 X 10*3/uL (0.00-0.10); Basophils % (A) 0.2 %; Eosinophils # (A) 0 X 10*3/uL (0.04-0.35); Eosinophils % (A) 0 %; Immature Grans, Automated 0.7 %; Lymphocytes # (A) 0.88 X 10*3/uL (0.90-5.00); Lymphocytes % (A) 6.5 %; Macrocytosis (M) 2+; Monocytes # (A) 0.76 X 10*3/uL (0.20-1.00); Monocytes % (A) 5.6 %; Neutrophils # (A) 11.71 X 10*3/uL (1.80-7.70)
[2022-07-08 10:49] LABS: C Reactive Protein 16.5 mg/dL (0.00-0.80)
[2022-07-08] MEDS: traMADol 50 MG TAB PO PRN (12:26)
--- NOTE | 2022-07-08 14:12 | P.PN ---
Subjective Progress Note Date: 07/08/22 Principal diagnosis: Shortness of breath. Pulmonary consult dated 07/07/2022. 52-year-old female who sees a family physician in [place], [place], who went to an outside hospital, i.e. [facility], for complaints of chest congestion, shortness of breath, cough, and generally just not feeling well. The patient has not been feeling well from the day before [place]. She is apparently seeing a number of different doctors at various facilities, and more recently, because of worsening symptoms, went to [facility], and was transferred down to our hospital, for additional monitoring and management. The patient apparently did test positive for influenza A. Also, chest x-ray showed an extensive pneumonia, left lower lobe. She apparently was placed on BiPAP ini tially in the emergency room, with settings of 8 over 4 and 40%. She's currently on 4 L. We see her today in room #6, down in the emergency department. The patient is currently on Rocephin and Zithromax. We discontinue the Tamiflu. It is not indicated in this patient. She apparently has a history of gastroesophageal reflux disease, hypertension, fibromyalgia, chronic headache, and celiac disease. She is a previous smoker. White count 7.6, hemoglobin 11.1, hematocrit 33, and platelet count of 263,000. Sodium 132, potassium 3.4, chlorides 99, CO2 24, BUN 16, creatinine 0.41. Chest x-ray shows an extensive pneumonia, and the left midlung left lower lobe. She also may have a few scattered opacities in the right lower lobe. Progress note dated 07/08/2022. 52-year-old female seen in the emergency department, in consultation, yesterday. Please see the note above. Currently, the patient is on 5 L of oxygen. She's not receiving any IV fluids. She was admitted with a diagnosis of influenza A, and left lower lobe pneumonia. The patient is still having shortness of breath, chest congestion, and cough. White count 13.5, hemoglobin 9.9, hematocrit 29.6, and platelet count was 327,000. Sodium 133, potassium 3.8, chlorides 97, CO2 27, anion gap 9, BUN 14, creatinine 0.5. Pro-calcitonin level was 1.73. Objective - Vital Signs Vital signs: Vital Signs Temp 98.1 F 07/08/22 08:00 Pulse 88 07/08/22 12:16 Resp 15 07/08/22 08:00 BP 136/86 07/08/22 08:00 Pulse Ox 98 07/08/22 08:00 FiO2 40 07/07/22 08:19 Intake & Output 07/07/22 07/08/22 07/08/22 18:59 06:59 18:59 Intake Total 180 Balance 180 Weight 82.1 kg Intake: Oral 180 Other: # Voids 1 2 - Exam No acute distress, oriented 3. The patient has a very wet congested cough. This no conversational dyspnea or use of accessory muscles. The patient is currently on 5 L. HEENT examination is grossly unremarkable. Neck supple. Full range of motion. No adenopathy thyromegaly or neck vein distention. Cardiovascular examination reveals regular rhythm rate. S1-S2 normal. No S3 or S4. No discernible murmur noted. Heart rate 88 bpm. Lungs reveal scattered bilateral rhonchi. Breath sounds equal bilaterally. Minimal crackles. No wheezes. Breath sounds equal bilaterally. 5 L saturation is 98%. Abdomen soft bowel sounds are heard. No masses or tenderness. Extremities are intact. No cyanosis clubbing or edema. Skin is without rash or lesion. Neurologic examination is brief but nonfocal. - Labs CBC & Chem 7: 07/08/22 04:23 07/08/22 04:23 Labs: Abnormal Lab Results - Last 24 Hours (Table) 07/08/22 07/08/22 07/08/22 Range/Units 04:23 04:23 04:23 WBC 13.47 H (4.50-10.00) X 10*3/uL RBC 3.09 L (4.10-5.20) X 10*6/uL Hgb 9.9 L (12.0-15.0) g/dL Hct 29.6 L (37.2-46.3) % Immature Gran # 0.09 H (0.00-0.04) X 10*3/uL Neutrophils # 11.71 H (1.80-7.70) X 10*3/uL Lymphocytes # 0.88 L (0.90-5.00) X 10*3/uL Eosinophils # 0 L (0.04-0.35) X 10*3/uL Sodium 133 L (135-145) mmol/L Anion Gap 8.90 L (10.00-18.00) mmol/L Creatinine 0.5 L (0.6-1.5) mg/dL BUN/Creatinine Ratio 27.60 H (12.00-20.00) Ratio Glucose 132 H (70-110) mg/dL C-Reactive Protein 16.50 H (0.00-0.80) mg/dL Total Protein 5.8 L (6.2-8.2) g/dL Albumin 3.1 L (3.8-4.9) g/dL Albumin/Globulin Ratio 1.15 L (1.60-3.17) g/dL Procalcitonin 1.73 H (0.02-0.09) ng/mL Microbiology - Last 24 Hours (Table) 07/07/22 15:43 Gram Stain - Preliminary Sputum Sputum Culture - Preliminary 07/06/22 23:16 Blood Culture - Preliminary Blood No Growth after 24 hours 07/06/22 23:00 Blood Culture - Preliminary Blood No Growth after 24 hours Assessment and Plan Assessment: Acute respiratory illness, secondary to influenza A infection, and left lower lobe pneumonia. Acute hypoxemic respiratory failure, secondary to above. History of hypertension. History of gastroesophageal reflux disease. History of fibromyalgia. History of chronic headache. History of celiac disease. Prior history of tobacco use. Plan: Plan dated 07/07/2022. The patient is on Rocephin and azithromycin. She's getting breathing treatments with albuterol sulfate and ipratropium bromide. Vancomycin was discontinued. Tamiflu was discontinued. The patient does not need corticosteroids at this time. We'll continue to follow and make recommendations where appropriate. Labs, x-rays, and medications are reviewed. The patient was seen in the emergency department. Plan dated 07/08/2022. The patient remains on 5 L. She's not receiving any IV fluids. Microbiologic studies are pending or negative. The patient is currently on Zithromax, Rocephin, and updrafts. We will continue to follow the patient and make recommendations along the way. The patient's overall prognosis remains guarded. The patient does not need corticosteroids at this time. Labs, x-rays, and medications are all reviewed. Time with Patient: Less than 30
--- NOTE | 2022-07-08 14:30 | P.PN ---
Subjective Progress Note Date: 07/08/22 Principal diagnosis: Pneumonia Patient is a 52-year-old female with a past medical history pertinent for hypertension GERD started having a problem with increasing shortness of breath and coughing symptom has been going on since , patient was diagnosed with acute influenza A at the outside facility and subsequently transferred to [facility] for management of underlying pneumonia. On today's evaluation that is 07/08/2022, the patient denies having any fever or chills, still complaining of left lower chest pain patient continues to have a cough and was unable to provide a sputum sample for culture, some nausea but no vomiting no abdominal pain or diarrhea Objective - Vital Signs Vital signs: Vital Signs Temp 97.7 F 07/08/22 14:00 Pulse 85 07/08/22 14:00 Resp 17 07/08/22 14:00 BP 153/80 07/08/22 14:00 Pulse Ox 96 07/08/22 14:00 FiO2 40 07/07/22 08:19 Intake & Output 07/07/22 07/08/22 07/08/22 18:59 06:59 18:59 Intake Total 180 Balance 180 Weight 82.1 kg Intake: Oral 180 Other: # Voids 1 2 - Exam GENERAL DESCRIPTION: A middle-aged female lying in bed in no distress RESPIRATORY SYSTEM: Unlabored breathing , course breath sounds bilaterally HEART: S1 S2 regular rate and rhythm , ABDOMEN: Soft , no tenderness EXTREMITIES: No edema feet - Labs CBC & Chem 7: 07/11/22 06:05 07/11/22 06:05 Labs: Abnormal Lab Results - Last 24 Hours (Table) 07/08/22 07/08/22 07/08/22 Range/Units 04:23 04:23 04:23 WBC 13.47 H (4.50-10.00) X 10*3/uL RBC 3.09 L (4.10-5.20) X 10*6/uL Hgb 9.9 L (12.0-15.0) g/dL Hct 29.6 L (37.2-46.3) % Immature Gran # 0.09 H (0.00-0.04) X 10*3/uL Neutrophils # 11.71 H (1.80-7.70) X 10*3/uL Lymphocytes # 0.88 L (0.90-5.00) X 10*3/uL Eosinophils # 0 L (0.04-0.35) X 10*3/uL Sodium 133 L (135-145) mmol/L Anion Gap 8.90 L (10.00-18.00) mmol/L Creatinine 0.5 L (0.6-1.5) mg/dL BUN/Creatinine Ratio 27.60 H (12.00-20.00) Ratio Glucose 132 H (70-110) mg/dL C-Reactive Protein 16.50 H (0.00-0.80) mg/dL Total Protein 5.8 L (6.2-8.2) g/dL Albumin 3.1 L (3.8-4.9) g/dL Albumin/Globulin Ratio 1.15 L (1.60-3.17) g/dL Procalcitonin 1.73 H (0.02-0.09) ng/mL Microbiology - Last 24 Hours (Table) 07/07/22 15:43 Gram Stain - Preliminary Sputum Sputum Culture - Preliminary 07/06/22 23:16 Blood Culture - Preliminary Blood No Growth after 24 hours 07/06/22 23:00 Blood Culture - Preliminary Blood No Growth after 24 hours Assessment and Plan (1) Left lower lobe pneumonia Current Visit: Yes Status: Acute Code(s): J18.9 - PNEUMONIA, UNSPECIFIED ORGANISM SNOMED Code(s): 306505164 Plan: 1patient presented to hospital with increasing shortness of breath cough symptom has been going on for more than a week now this patient with likely ac anvik influenza a and possible component of secondary bacterial pneumonia patient has been more than 5 days of symptom onset as well as influenza and not ideal candidate for Tamiflu which has been discontinued. 2sputum has been collected and cultures will follow patient did have elevated procalcitonin of 1.73. 3patient to continue with Rocephin and Zithromax and monitor clinical course closely Time with Patient: Less than 30
[2022-07-08] MEDS: HYDROcodone/APAP 5-325MG 1 EACH TAB PO PRN ×2 (14:38→21:22)
--- NOTE | 2022-07-08 16:24 | PN ---
PROGRESS NOTE DATE OF SERVICE: 07/08/2022 SUBJECTIVE: This is a 52-year-old woman, who was admitted with acute hypoxic respiratory failure secondary to influenza A and pneumonia. She is being closely monitored. No chest pain. No palpitation. No fever. OBJECTIVE: VITAL SIGNS: Pulse is 68, blood pressure 136/83, respirations 15. CHEST: A few scattered rhonchi. ABDOMEN: Soft. NERVOUS SYSTEM: Nonfocal. LABORATORY DATA: WBCntd The rest of the labs are reviewed. ASSESSMENT: 1. Acute influenza A. 2. Pneumonia. 3. Hyponatremia. 4. Hypertension. 5. Fibromyalgia. 6. Multiple medical issues. RECOMMENDATIONS: Recommend to continue current medications and symptomatic treatment. Continue with bronchodilators. Continue the rest of the medications. Closely follow up with Dr. Gorman. Further recommendations to follow. MMODL / IJN: [id number] / MTDD
[2022-07-08] MEDS: VENLAFAXINE HCL ER 150 MG CAP PO SCH (21:08)
[2022-07-08] MEDS: GABAPENTIN 300 MG CAP PO SCH (21:08)
[2022-07-08] MEDS: lisinopriL 20 MG TAB PO SCH (21:08)
[2022-07-08] MEDS: AMITRIPTYLINE HCL 10 MG TAB PO SCH (21:09)
[2022-07-08] MEDS: amLODIPine 5 MG TAB PO SCH (21:09)
[2022-07-08] MEDS: METOPROLOL SUCCINATE (ER) 100 MG TAB.ER.24H PO SCH (21:09)
[2022-07-09] MEDS: traMADol 50 MG TAB PO PRN (01:29)
[2022-07-09] MEDS: IPRATROPIUM-ALBUTEROL 3 ML NEB INHALATION SCH ×5 (03:14→21:36)
[2022-07-09] MEDS: PANTOPRAZOLE 40 MG TABLET PO SCH (05:49)
[2022-07-09] MEDS: HYDROcodone/APAP 5-325MG 1 EACH TAB PO PRN ×2 (05:49→19:38)
[2022-07-09] MEDS: KETOROLAC 15 MG/ML 1 ML VIAL IVP PRN ×2 (08:17→23:49)
[2022-07-09] MEDS: AZITHROMYCIN 500 MG TAB PO SCH (08:18)
[2022-07-09 08:34] LABS: Basophils # (A) 0.04 X 10*3/uL (0.00-0.10); Basophils % (A) 0.3 %; Eosinophils # (A) 0.04 X 10*3/uL (0.04-0.35); Eosinophils % (A) 0.3 %; HCT 29.6 % (37.2-46.3); HGB 10.1 g/dL (12.0-15.0); Immature Grans, Automated 0.9 %; Lymphocytes # (A) 2.14 X 10*3/uL (0.90-5.00); Lymphocytes % (A) 15.6 %; MCH 32.3 pg (27.0-32.0); MCHC 34.1 g/dL (32.0-37.0); MCV 94.6 fL (80.0-97.0); Mean Platelet Volume 9.8 fL (9.5-12.2); Monocytes # (A) 0.91 X 10*3/uL (0.20-1.00); Monocytes % (A) 6.6 %; NRBC Per 100 WBC 0 /100 WBCS (0.0-0.0); Neutrophils # (A) 10.49 X 10*3/uL (1.80-7.70); Neutrophils % (A) 76.3 %; Platelet Count 373 X 10*3/uL (140-440); RBC 3.13 X 10*6/uL (4.10-5.20); RDW 13.8 % (11.5-14.5); WBC 13.74 X 10*3/uL (4.50-10.00)
[2022-07-09 08:49] LABS: African American GFR (CKD) 137.8 (60.0-200.0); Albumin 3.3 g/dL (3.8-4.9); Albumin/Globulin Ratio 1.27 (1.60-3.17); Anion Gap 9.3 mmol/L (10.00-18.00); BUN/Creat Ratio 23.5 Ratio (12.00-20.00); Blood Urea Nitrogen 9.4 mg/dL (9.0-27.0); Calcium 8.9 mg/dL (8.7-10.3); Carbon Dioxide 29.7 mmol/L (20.0-27.5); Globulin 2.6 g/dL (1.6-3.3); Non-African American GFR(CKD) 118.9 (60.0-200.0); Potassium 3.7 mmol/L (3.5-5.5); Total Bilirubin 0.4 mg/dL (0.30-1.20); Total Protein 5.9 g/dL (6.2-8.2)
--- NOTE | 2022-07-09 11:04 | XR ---
EXAMINATION TYPE: XR chest 1V portable DATE OF EXAM: 07/09/2022 CLINICAL HISTORY: Difficulty breathing progress study. TECHNIQUE: Single AP portable upright view of the chest is obtained. COMPARISON: Chest x-ray from 2 days earlier FINDINGS: There is improved but persistent left mid to lower lung increased opacity. Patchy right ba silar opacity redemonstrated. Increasing right suprahilar opacity noted. Cardiac silhouette size stab le and within normal limits. Osseous structures are intact. IMPRESSION: Small left pleural effusion now present. Persistent but improved left mid to lower lung a cute infiltrate and/or atelectasis. Stable patchy right basilar atelectasis and/or limited infiltrate . Slightly more prominent right suprahilar acute infiltrate.
--- NOTE | 2022-07-09 13:48 | P.PN ---
Subjective Progress Note Date: 07/09/22 This is a 52 year old female medical history of hypertension, GERD/Reflux, fibromyalgia, who is a current pack per day smoker. Works in an office type setting doing quality internship. She has been in the ER/Urgent care on multiple occasions this last week with reported headache and overall not feeling well. This last time she reported to the [place] ER she was found to be significantly short of breath with reports of fever/chills, shortness of breath, cough with yellow/green sputum, and reports decreased appetite and nausea. Denies chest pain. There she was found to have elevated procalcitonin at 3.6, as well as white count of 13.9. D-Dimer was also elevated and chest CT angiography performed showing left lower lobe pneumonia, no pulmonary embolism detected. Found to be positive for influenza A and also had low blood pressure and low sodium. She was started on IV antibiotics and bipap and transferred to [facility] ER for further evaluation and work up. Follow up chest xray at [facility] showing hazy appearance of the left mid and lower lung which appears new from July 04 chest x-ray. There is a right basilar airspace opacity possibly some aspiration. Sodium is now 132, potassium 3.4. White count 7.6. Requiring 4 to 5 L of oxygen. Infectious disease and pulmonary services are consulted. Resumed on appropriate home medications. Saline will be decreased to 75 mls/hr. 07/09/2022 Patient seen and evaluated and follow-up this morning with pulmonary following and patient is maintained on DuoNeb's and is continuing to receive IV ceftriaxone. Patient has completed Zithromax. Sputum culture was showing normal alex and blood cultures remain negative. Recommend continue duo nebs an d encouraged to increase activity as tolerated. WBC remains elevated at 13.74, hemoglobin is stable at 10.1, sodium is 133 with a potassium of 3.7 and creatinine is 0.4. Patient remains on 4 L via nasal cannula and recommend to wean FiO2 as tolerated. Chest x-ray ordered today and pending. Patient is afebrile and continues to report shortness of breath and difficulty in breathing with cough. Patient denies chest pain or palpitations. No reports of nausea or vomiting and patient tolerating diet. Encouraged oral intake and will continue current regimen. Will also add incentive spirometer. Review of systems: Constitutional: No reports of fatigue, fever, or chills Cardiovascular: No reports of chest pain or palpitations Respiratory: No reports of shortness of breath or cough GI: No reports of nausea, vomiting, or diarrhea : No reports of dysuria or retention Neurovascular: No reports of weakness or numbness All medications have been reviewed PHYSICAL EXAMINATION: GENERAL: The patient is alert and oriented x3,Well developed, well nourished. Currently on 4L nasal cannula HEENT: Pupils are round and equally reacting to light. EOMI. No scleral icterus. No conjunctival pallor. Normocephalic, atraumatic. No pharyngeal erythema. No thyromegaly. CARDIOVASCULAR: S1 and S2 muffled PULMONARY: Coarse scattered rhonchi throughout ABDOMEN: Soft, nontender, nondistended, normoactive bowel sounds. No palpable organomegaly. MUSCULOSKELETAL: No joint swelling or deformity. EXTREMITIES: No cyanosis, clubbing, or pedal edema. NEUROLOGICAL: Gross neurological examination did not reveal any focal deficits. SKIN: No rashes. Assessment: Acute hypoxemic respiratory failure secondary to influenza A with pneumonia and sepsis currently requiring 4 L of nasal cannula Hyponatremia, hypovolemic, improving History hypertension Fibromyalgia with chronic pain Gastroesophageal reflux disease Celiac disease Current tobacco use, 1 pack per day GI prophylaxis DVT prophylaxis Plan: Recommend continue ceftriaxone along with DuoNeb treatments. Pulmonary is following and maintained on 4 L via nasal cannula. Patient has been off BiPAP and recommend wean FiO2 as tolerated Sodium is improved and will discontinue IV fluids as patient is eating and drinking Sputum culture negative Chest x-ray was done today showing small left pleural effusion now present persistent but improved left mid to lower lung acute infiltrate and/or atelectasis with stable patchy right basilar atelectasis and/or Limited infiltrate slightly more prominent right suprahilar acute infiltrate. Will order incentive spirometer and encourage the patient to continue with coughing and deep breathing. Will also give a dose of Lasix. Due to multiple complex medical issues, prognosis is guarded. The impression and plan of care has been dictated by Kaia García Nurse Practitioner as directed. Dr. Conner MD I have performed a history and examination and MDM of this patient, discussed the same with the dictator, and agree with the dictator's assessment and plan as written ,documented as a scribe. Based on total visit time, I have performed more than 50% of the visit. Objective - Vital Signs Vital signs: Vital Signs Temp 98.0 F 07/09/22 07:59 Pulse 88 07/09/22 12:20 Resp 18 07/09/22 08:00 BP 157/77 07/09/22 07:59 Pulse Ox 95 07/09/22 07:59 FiO2 40 07/07/22 08:19 Intake & Output 07/08/22 07/09/22 07/09/22 18:59 06:59 18:59 Intake Total 1050 Balance 1050 Intake: Intake, IV Titration 650 Amount Sodium Chloride 0.9% 1, 600 000 ml @ 75 mls/hr IV . [id number] [facility] Rx#:[id number] cefTRIAXone 2 gm In 50 Sodium Chloride 0.9% 50 ml @ 100 mls/hr IVPB Q24HR [facility] Rx#:[id number] Oral 400 Other: # Voids 3 1 - Labs CBC & Chem 7: 07/09/22 04:21 07/09/22 04:21 Labs: Abnormal Lab Results - Last 24 Hours (Table) 07/09/22 07/09/22 Range/Units 04:21 04:21 WBC 13.74 H (4.50-10.00) X 10*3/uL RBC 3.13 L (4.10-5.20) X 10*6/uL Hgb 10.1 L (12.0-15.0) g/dL Hct 29.6 L (37.2-46.3) % MCH 32.3 H (27.0-32.0) pg Immature Gran # 0.12 H (0.00-0.04) X 10*3/uL Neutrophils # 10.49 H (1.80-7.70) X 10*3/uL Sodium 133 L (135-145) mmol/L Chloride 94 L (96-109) mmol/L Carbon Dioxide 29.7 H (20.0-27.5) mmol/L Anion Gap 9.30 L (10.00-18.00) mmol/L Creatinine 0.4 L (0.6-1.5) mg/dL BUN/Creatinine Ratio 23.50 H (12.00-20.00) Ratio Total Protein 5.9 L (6.2-8.2) g/dL Albumin 3.3 L (3.8-4.9) g/dL Albumin/Globulin Ratio 1.27 L (1.60-3.17) g/dL Microbiology - Last 24 Hours (Table) 07/07/22 15:43 Gram Stain - Final Sputum Sputum Culture - Final 07/06/22 23:00 Blood Culture - Preliminary Blood No Growth after 48 hours 07/06/22 23:16 Blood Culture - Preliminary Blood No Growth after 48 hours
--- NOTE | 2022-07-09 14:36 | P.PN ---
Subjective Progress Note Date: 07/09/22 Principal diagnosis: Influenza A positive, hypoxemia 52-year-old female who sees a family physician in [place], [place], who went to an outside hospital, i.e. [facility], for complaints of chest congestion, shortness of breath, cough, and generally just not feeling well. The patient has not been feeling well from the day before [place]. She is apparently seeing a number of different doctors at various facilities, and more recently, because of worsening symptoms, went to [facility], and was transferred down to our hospital, for additional monitoring and management. The patient apparently did test positive for influenza A. Also, chest x-ray showed an ext ensive pneumonia, left lower lobe. She apparently was placed on BiPAP initially in the emergency room, with settings of 8 over 4 and 40%. She's currently on 4 L. We see her today in room #6, down in the emergency department. The patient is currently on Rocephin and Zithromax. We discontinue the Tamiflu. It is not indicated in this patient. She apparently has a history of gastroesophageal re flux disease, hypertension, fibromyalgia, chronic headache, and celiac disease. She is a previous smoker. White count 7.6, hemoglobin 11.1, hematocrit 33, and platelet count of 263,000. Sodium 132, potassium 3.4, chlorides 99, CO2 24, BUN 16, creatinine 0.41. Chest x-ray shows an extensive pneumonia, and the left midlung left lower lobe. She also may have a few scattered opacities in the right lower lobe. Progress note dated 07/08/2022. 52-year-old female seen in the emergency department, in consultation, yesterday. Please see the note above. Currently, the patient is on 5 L of oxygen. She's not receiving any IV fluids. She was admitted with a diagnosis of influenza A, and left lower lobe pneumonia. The patient is still having shortness of breath, chest congestion, and cough. White count 13.5, hemoglobin 9.9, hematocrit 29.6, and platelet count was 327,000. Sodium 133, potassium 3.8, chlorides 97, CO2 27, anion gap 9, BUN 14, creatinine 0.5. Pro-calcitonin level was 1.73. I'm evaluating this patient today on 07/09/2022 in follow-up on a general medical floor. Patient is currently resting comfortably, up in bed, on 4 L nasal cannula. Chest x-ray from today shows persistent but improved left mid to lower lung acute infiltrate and/or atelectasis with stable patchy right basilar atelectasis and/or limited infiltrate. There is slightly more prominent right supra regular acute infiltrate. There is a new small left pleural effusion. Sputum culture was negative. Blood culture shows no growth at 48 hours. CBC from today shows mild leukocytosis with a WBC count of 13.7, hemoglobin 10.1, hematocrit 29.6, platelets 373,000. Today shows a sodium of 133, potassium 3.7, chloride 94, serum CO2 30, BUN 9.4, creatinine 0.4, glucose 83. Procalcitonin from yesterday was quite high at 1.73. Patient completed his course of Zithromax, and is currently receiving Rocephin for empiric therapy. Patient has remained afebrile overnight. No IV maintenance fluids infusing. Continues receiving DuoNeb inhalation. Vital signs remain stable. Objective - Vital Signs Vital signs: Vital Signs Temp 97.9 F 07/09/22 14:00 Pulse 87 07/09/22 14:00 Resp 18 07/09/22 14:00 BP 159/89 07/09/22 14:00 Pulse Ox 96 07/09/22 14:00 FiO2 40 07/07/22 08:19 Intake & Output 07/08/22 07/09/22 07/09/22 18:59 06:59 18:59 Intake Total 1050 Balance 1050 Intake: Intake, IV Titration 650 Amount Sodium Chloride 0.9% 1, 600 000 ml @ 75 mls/hr IV . [id number] [facility] Rx#:[id number] cefTRIAXone 2 gm In 50 Sodium Chloride 0.9% 50 ml @ 100 mls/hr IVPB Q24HR [facility] Rx#:[id number] Oral 400 Other: # Voids 3 1 - Exam Alert, in no acute distress, oriented 3. The patient is currently on 4 L. HEENT examination is grossly unremarkable. Neck supple. Full range of motion. No adenopathy thyromegaly or neck vein distention. Cardiovascular examination reveals regular rhythm rate. S1-S2 normal. No S3 or S4. No discernible murmur noted. Heart rate 88 bpm. Lungs reveal scattered bilateral rhonchi. Breath sounds equal bilaterally. Without wheezes. continues to have congested nonproductive cough. No accessory muscle use. On 4 L nasal cannula. Abdomen soft bowel sounds are heard. No masses or tenderness. Extremities are intact. No cyanosis clubbing or edema. Skin is without rash or lesion. Neurologic examination is brief but nonfocal. - Labs CBC & Chem 7: 07/09/22 04:21 07/09/22 04:21 Labs: Abnormal Lab Results - Last 24 Hours (Table) 07/09/22 07/09/22 Range/Units 04:21 04:21 WBC 13.74 H (4.50-10.00) X 10*3/uL RBC 3.13 L (4.10-5.20) X 10*6/uL Hgb 10.1 L (12.0-15.0) g/dL Hct 29.6 L (37.2-46.3) % MCH 32.3 H (27.0-32.0) pg Immature Gran # 0.12 H (0.00-0.04) X 10*3/uL Neutrophils # 10.49 H (1.80-7.70) X 10*3/uL Sodium 133 L (135-145) mmol/L Chloride 94 L (96-109) mmol/L Carbon Dioxide 29.7 H (20.0-27.5) mmol/L Anion Gap 9.30 L (10.00-18.00) mmol/L Creatinine 0.4 L (0.6-1.5) mg/dL BUN/Creatinine Ratio 23.50 H (12.00-20.00) Ratio Total Protein 5.9 L (6.2-8.2) g/dL Albumin 3.3 L (3.8-4.9) g/dL Albumin/Globulin Ratio 1.27 L (1.60-3.17) g/dL Microbiology - Last 24 Hours (Table) 07/07/22 15:43 Gram Stain - Final Sputum Sputum Culture - Final 07/06/22 23:00 Blood Culture - Preliminary Blood No Growth after 48 hours 07/06/22 23:16 Blood Culture - Preliminary Blood No Growth after 48 hours Assessment and Plan Assessment: Acute respiratory illness, secondary to influenza A infection, and left lower lobe pneumonia. Procalcitonin elevated at 1.73 Acute hypoxemic respiratory failure, secondary to above. History of hypertension. History of gastroesophageal reflux disease. History of fibromyalgia. History of chronic headache. History of celiac disease. Prior history of tobacco use. Plan: Patient's medications, labs, chest x-ray reviewed. Continue supplemental oxygen to maintain oxygen saturation of 92% or greater Continue ceftriaxone for empiric therapy Continue DuoNeb inhalation We will continue to follow I have personally seen and examined the patient, performed the documentation and the assessment and plan as written. Number of minutes spent on the visit: 10. Time with Patient: Less than 30
[2022-07-09] MEDS: SODIUM CHLORIDE 0.9% 1,000 ML IV SCH (19:49)
[2022-07-09] MEDS: GABAPENTIN 300 MG CAP PO SCH (21:37)
[2022-07-09] MEDS: METOPROLOL SUCCINATE (ER) 100 MG TAB.ER.24H PO SCH (21:37)
[2022-07-09] MEDS: AMITRIPTYLINE HCL 10 MG TAB PO SCH (21:37)
[2022-07-09] MEDS: amLODIPine 5 MG TAB PO SCH (21:37)
[2022-07-09] MEDS: VENLAFAXINE HCL ER 150 MG CAP PO SCH (21:37)
[2022-07-09] MEDS: lisinopriL 20 MG TAB PO SCH (21:37)
[2022-07-09] MEDS: DOCUSATE 100 MG CAP PO PRN (21:45)
[2022-07-10] MEDS: IPRATROPIUM-ALBUTEROL 3 ML NEB INHALATION SCH ×6 (00:32→21:26)
[2022-07-10] MEDS: PANTOPRAZOLE 40 MG TABLET PO SCH (05:40)
[2022-07-10] MEDS: HYDROcodone/APAP 5-325MG 1 EACH TAB PO PRN ×3 (05:40→20:47)
[2022-07-10] MEDS: polyethylene glycoL 3350 17 GM POWD.PACK PO SCH (07:59)
[2022-07-10] MEDS: KETOROLAC 15 MG/ML 1 ML VIAL IVP PRN ×2 (08:00→17:29)
--- NOTE | 2022-07-10 12:15 | P.PN ---
Subjective Progress Note Date: 07/09/22 Principal diagnosis: Pneumonia Patient is a 52-year-old female with a past medical history pertinent for hypertension GERD started having a problem with increasing shortness of breath and coughing symptom has been going on since , patient was diagnosed with acute influenza A at the outside facility and subsequently transferred to [facility] for management of underlying pneumonia. On today's evaluation that is 07/09/2022, the patient remains to be afebrile, the patient is still complaining of left lower chest pain along with shortness of breath, patient continues to have a cough and mostly dry in nature, some nausea but no vomiting no abdominal pain or diarrhea Objective - Vital Signs Vital signs: Vital Signs Temp 98.0 F 07/09/22 07:59 Pulse 88 07/09/22 08:45 Resp 18 07/09/22 08:00 BP 157/77 07/09/22 07:59 Pulse Ox 95 07/09/22 07:59 FiO2 40 07/07/22 08:19 Intake & Output 07/08/22 07/09/22 07/09/22 18:59 06:59 18:59 Intake Total 1050 Balance 1050 Intake: Intake, IV Titration 650 Amount Sodium Chloride 0.9% 1, 600 000 ml @ 75 mls/hr IV . [id number] [facility] Rx#:[id number] cefTRIAXone 2 gm In 50 Sodium Chloride 0.9% 50 ml @ 100 mls/hr IVPB Q24HR [facility] Rx#:[id number] Oral 400 Other: # Voids 3 1 - Exam GENERAL DESCRIPTION: A middle-aged female lying in bed in no distress RESPIRATORY SYSTEM: Unlabored breathing , course breath sounds bilaterally HEART: S1 S2 regular rate and rhythm , ABDOMEN: Soft , no tenderness EXTREMITIES: No edema feet - Labs CBC & Chem 7: 07/09/22 04:21 07/09/22 04:21 Labs: Abnormal Lab Results - Last 24 Hours (Table) 07/09/22 07/09/22 Range/Units 04:21 04:21 WBC 13.74 H (4.50-10.00) X 10*3/uL RBC 3.13 L (4.10-5.20) X 10*6/uL Hgb 10.1 L (12.0-15.0) g/dL Hct 29.6 L (37.2-46.3) % MCH 32.3 H (27.0-32.0) pg Immature Gran # 0.12 H (0.00-0.04) X 10*3/uL Neutrophils # 10.49 H (1.80-7.70) X 10*3/uL Sodium 133 L (135-145) mmol/L Chloride 94 L (96-109) mmol/L Carbon Dioxide 29.7 H (20.0-27.5) mmol/L Anion Gap 9.30 L (10.00-18.00) mmol/L Creatinine 0.4 L (0.6-1.5) mg/dL BUN/Creatinine Ratio 23.50 H (12.00-20.00) Ratio Total Protein 5.9 L (6.2-8.2) g/dL Albumin 3.3 L (3.8-4.9) g/dL Albumin/Globulin Ratio 1.27 L (1.60-3.17) g/dL Microbiology - Last 24 Hours (Table) 07/06/22 23:00 Blood Culture - Preliminary Blood No Growth after 48 hours 07/06/22 23:16 Blood Culture - Preliminary Blood No Growth after 48 hours 07/07/22 15:43 Gram Stain - Preliminary Sputum Sputum Culture - Preliminary Assessment and Plan (1) Left lower lobe pneumonia Current Visit: Yes Status: Acute Code(s): J18.9 - PNEUMONIA, UNSPECIFIED ORGANISM SNOMED Code(s): 507211409 Plan: 1patient presented to hospital with increasing shortness of breath cough symptom has been going on for more than a week now this patient with likely acute influenza a and possible component of secondary bacterial pneumonia patient has been more than 5 days of symptom onset as well as influenza and not ideal candidate for Tamiflu which has been discontinued. 2sputum has been collected and cultures currently pending, patient did have elevated procalcitonin of 1.73. 3patient did have a repeat chest x-ray this morning we did shows improvement in the left-sided infiltrate 4- patient to continue with Rocephin and Zithromax and monitor clinical course closely Time with Patient: Less than 30
--- NOTE | 2022-07-10 12:17 | P.PN ---
Subjective Progress Note Date: 07/10/22 Principal diagnosis: Pneumonia Patient is a 52-year-old female with a past medical history pertinent for hypertension GERD started having a problem with increasing shortness of breath and coughing symptom has been going on since , patient was diagnosed with acute influenza A at the outside facility and subsequently transferred to [facility] for management of underlying pneumonia. On today's evaluation that is 07/10/2022, the patient continues to be afebrile, the patient is breathing slightly comfortably and the patient left-sided chest pain has decreased in intensity cough also decrease in intensity not bringing up any sputum some nausea but no vomiting no abdominal pain or diarrhea Objective - Vital Signs Vital signs: Vital Signs Temp 97.4 F L 07/10/22 07:27 Pulse 80 07/10/22 11:36 Resp 16 07/10/22 08:00 BP 152/84 07/10/22 07:27 Pulse Ox 98 07/10/22 07:27 FiO2 40 07/07/22 08:19 Intake & Output 07/09/22 07/10/22 07/10/22 18:59 06:59 18:59 Intake Total 1150 Balance 1150 Intake: Intake, IV Titration 600 Amount Sodium Chloride 0.9% 1, 600 000 ml @ 75 mls/hr IV . [id number] [facility] Rx#:[id number] Oral 550 Other: Voiding Method Toilet Toilet # Voids 3 1 - Exam GENERAL DESCRIPTION: A middle-aged female lying in bed in no distress RESPIRATORY SYSTEM: Unlabored breathing , decreased breath sounds at left base HEART: S1 S2 regular rate and rhythm , ABDOMEN: Soft , no tenderness EXTREMITIES: No edema feet - Labs CBC & Chem 7: 07/09/22 04:21 07/09/22 04:21 Labs: Microbiology - Last 24 Hours (Table) 07/06/22 23:16 Blood Culture - Preliminary Blood No Growth after 72 hours 07/06/22 23:00 Blood Culture - Preliminary Blood No Growth after 72 hours 07/07/22 15:43 Gram Stain - Final Sputum Sputum Culture - Final Assessment and Plan (1) Left lower lobe pneumonia Current Visit: Yes Status: Acute Code(s): J18.9 - PNEUMONIA, UNSPECIFIED ORGANISM SNOMED Code(s): 344683162 Plan: 1patient presented to hospital with increasing shortness of breath cough symptom has been going on for more than a week now this patient with likely acute influenza a and possible component of secondary bacterial pneumonia patient has been more than 5 days of symptom onset as well as influenza and not ideal candidate for Tamiflu which has been discontinued. 2 patient did have elevated procalcitonin of 1.73. Sputum has been negative for resistant pathogen blood cultures so far negative 3patient did have a repeat chest x-ray on 07/09/2022 which did shows improvement in the left-sided infiltrate 4- patient seemed to have shown clinical improvement and will continue with Rocephin and Zithromax and continue supportive care Time with Patient: Less than 30
--- NOTE | 2022-07-10 12:17 | P.PN ---
Subjective Progress Note Date: 07/10/22 Influenza A positive, hypoxemia 52-year-old female who sees a family physician in [place], [place], who went to an outside hospital, i.e. [facility], for complaints of chest congestion, shortness of breath, cough, and generally just not feeling well. The patient has not been feeling well from the day before [place]. She is apparently seeing a number of different doctors at various facilities, and more recently, because of worsening symptoms, went to [facility], and was transferred d own to our hospital, for additional monitoring and management. The patient apparently did test positive for influenza A. Also, chest x-ray showed an extensive pneumonia, left lower lobe. She apparently was placed on BiPAP initially in the emergency room, with settings of 8 over 4 and 40%. She's currently on 4 L. We see her today in room #6, down in the emergency department. The patient is currently on Rocephin and Zithromax. We discontinue the Tamiflu. It is not indicated in this patient. She apparently has a history of gastroesophageal reflux disease, hypertension, fibromyalgia, chronic headache, and celiac disease. She is a previous smoker. White count 7.6, hemoglobin 11.1, hematocrit 33, and platelet count of 263,000. Sodium 132, potassium 3.4, chlorides 99, CO2 24, BUN 16, creatinine 0.41. Chest x-ray shows an extensive pneumonia, and the left midlung left lower lobe. She also may have a few scattered opacities in the right lower lobe. Progress note dated 07/08/2022. 52-year-old female seen in the emergency department, in consultation, yesterday. Please see the note above. Currently, the patient is on 5 L of oxygen. She's not receiving any IV fluids. She was admitted with a diagnosis of influenza A, and left lower lobe pneumonia. The patient is still having shortness of breath, chest congestion, and cough. White count 13.5, hemoglobin 9.9, hematocrit 29.6, and platelet count was 327,000. Sodium 133, potassium 3.8, chlorides 97, CO2 27, anion gap 9, BUN 14, creatinine 0.5. Pro-calcitonin level was 1.73. I'm evaluating this patient today on 07/09/2022 in follow-up on a general medical floor. Patient is currently resting comfortably, up in bed, on 4 L nasal cannula. Chest x-ray from today shows persistent but improved left mid to lower lung acute infiltrate and/or atelectasis with stable patchy right basilar atelectasis and/or limited infiltrate. There is slightly more prominent right supra regular acute infiltrate. There is a new small left pleural effusion. Sputum culture was negative. Blood culture shows no growth at 48 hours. CBC from today shows mild leukocytosis with a WBC count of 13.7, hemoglobin 10.1, hematocrit 29.6, platelets 373,000. Today shows a sodium of 133, potassium 3.7, chloride 94, serum CO2 30, BUN 9.4, creatinine 0.4, glucose 83. Procalcitonin from yesterday was quite high at 1.73. Patient completed his course of Zithromax, and is currently receiving Rocephin for empiric therapy. Patient has remained afebrile overnight. No IV maintenance fluids infusing. Continues receiving DuoNeb inhalation. Vital signs remain stable. 07/10/2021, the patient remains on 5 L of oxygen by nasal cannula. She is a chronic smoker. She denies having any form of chronic respiratory difficulties on outpatient basis. The patient was initially placed on a BiPAP and following that she was transitioned to 5 L O2 nasal cannula. She is positive for influenza. Her pro calcitonin level was also elevated at 1.7 and the patient was given a combination of Rocephin and Zithromax. Her breath sounds are still diminished. She is using the senna spirometer. She has a congested cough. Unable to bring up much of sputum at this point in time. Her recovery was extremely slow. She does have a pneumonia in her right upper lobe and left lower lobe and a CAT scan of the chest that was done outpatient basis showed extensive pneumonia in her left lower lobe. This was involving the posterior segment of the left lower lobe in addition to the lateral segments. Minimal inflammatory changes are also seen in the right lower lobe and upper lobes bilaterally. No Objective - Vital Signs Vital signs: Vital Signs Temp 97.4 F L 07/10/22 07:27 Pulse 80 07/10/22 11:36 Resp 16 07/10/22 08:00 BP 152/84 07/10/22 07:27 Pulse Ox 98 07/10/22 07:27 FiO2 40 07/07/22 08:19 Intake & Output 07/09/22 07/10/22 07/10/22 18:59 06:59 18:59 Intake Total 1150 Balance 1150 Intake: Intake, IV Titration 600 Amount Sodium Chloride 0.9% 1, 600 000 ml @ 75 mls/hr IV . [id number] [facility] Rx#:[id number] Oral 550 Other: Voiding Method Toilet Toilet # Voids 3 1 - Exam Alert, in no acute distress, oriented 3. The patient is currently on 5 L. HEENT examination is grossly unremarkable. Neck supple. Full range of motion. No adenopathy thyromegaly or neck vein distention. Cardiovascular examination reveals regular rhythm rate. S1-S2 normal. No S3 or S4. No discernible murmur noted. Heart rate 88 bpm. Lungs reveal scattered bilateral rhonchi. Breath sounds equal bilaterally. Without wheezes. continues to have congested nonproductive cough. No accessory muscle use. On 4 L nasal cannula. Abdomen soft bowel sounds are heard. No masses or tenderness. Extremities are intact. No cyanosis clubbing or edema. Skin is without rash or lesion. Neurologic examination is brief but nonfocal. - Labs CBC & Chem 7: 07/09/22 04:21 07/09/22 04:21 Labs: Microbiology - Last 24 Hours (Table) 07/06/22 23:16 Blood Culture - Preliminary Blood No Growth after 72 hours 07/06/22 23:00 Blood Culture - Preliminary Blood No Growth after 72 hours 07/07/22 15:43 Gram Stain - Final Sputum Sputum Culture - Final Assessment and Plan Plan: Acute respiratory illness, secondary to influenza A infection, and left lower lobe pneumonia. Procalcitonin elevated at 1.73she, I believe this patient started off with an influenza infection should she obviously got infected with bacteria with an extensive left lower lobe pulmonary consolidation. Acute hypoxemic respiratory failure, secondary to above. History of hypertension. History of gastroesophageal reflux disease. History of fibromyalgia. History of chronic headache. History of celiac disease. Prior history of tobacco use. Plan: repeat pro-calcitonin level Repeat chest x-ray in a.m. Continue using the incentive spirometer Patient's medications, labs, chest x-ray reviewed. Continue supplemental oxygen to maintain oxygen saturation of 92% or greater Continue ceftriaxone for empiric therapy and add zithromax 500 mg daily Continue DuoNeb inhalation We will continue to follow
[2022-07-10] MEDS: AZITHROMYCIN 500 MG TAB PO SCH (13:50)
[2022-07-10] MEDS: GABAPENTIN 300 MG CAP PO SCH (20:46)
[2022-07-10] MEDS: DOCUSATE 100 MG CAP PO PRN (20:46)
[2022-07-10] MEDS: lisinopriL 20 MG TAB PO SCH (20:46)
[2022-07-10] MEDS: amLODIPine 5 MG TAB PO SCH (20:46)
[2022-07-10] MEDS: AMITRIPTYLINE HCL 10 MG TAB PO SCH (20:47)
[2022-07-10] MEDS: METOPROLOL SUCCINATE (ER) 100 MG TAB.ER.24H PO SCH (20:47)
[2022-07-10] MEDS: VENLAFAXINE HCL ER 150 MG CAP PO SCH (20:47)
[2022-07-11] MEDS: IPRATROPIUM-ALBUTEROL 3 ML NEB INHALATION SCH ×6 (00:06→20:46)
[2022-07-11] MEDS: HYDROcodone/APAP 5-325MG 1 EACH TAB PO PRN ×3 (02:07→20:19)
--- NOTE | 2022-07-11 03:35 | P.PN ---
Subjective Progress Note Date: 07/10/22 This is a 52 year old female medical history of hypertension, GERD/Reflux, fibromyalgia, who is a current pack per day smoker. 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 She has been in the ER/Urgent care on multiple occasions this last week with reported headache and overall not feeling well. This last time she reported to the [place] ER she was found to be significantly short of breath with reports of fever/chills, shortness of breath, cough with yellow/green sputum, and reports decreased appetite and nausea. Denies chest pain. There she was found to have elevated procalcitonin at 3.6, as well as white count of 13.9. D-Dimer was also elevated and chest CT angiography performed showing left lower lobe pneumonia, no pulmonary embolism detected. Found to be positive for influenza A and also had low blood pressure and low sodium. She was started on IV antibiotics and bipap and transferred to [facility] ER for further evaluation and work up. Follow up chest xray at [facility] showing hazy appearance of the left mid and lower lung which appears new from July 04 chest x-ray. There is a right basilar airspace opacity possibly some aspiration. Sodium is now 132, potassium 3.4. White count 7.6. Requiring 4 to 5 L of oxygen. Infectious disease and pulmonary services are consulted. Resumed on appropriate home medications. Saline will be decreased to 75 mls/hr. 07/09/2022 Patient seen and evaluated and follow-up this morning with pulmonary following and patient is maintained on DuoNeb's and is continuing to receive IV ceftriaxone. Patient has completed Zithromax. Sputum culture was showing normal alex and blood cultures remain negative. Recommend continue duo nebs an d encouraged to increase activity as tolerated. WBC remains elevated at 13.74, hemoglobin is stable at 10.1, sodium is 133 with a potassium of 3.7 and creatinine is 0.4. Patient remains on 4 L via nasal cannula and recommend to wean FiO2 as tolerated. Chest x-ray ordered today and pending. Patient is afebrile and continues to report shortness of breath and difficulty in breathing with cough. Patient denies chest pain or palpitations. No reports of nausea or vomiting and patient tolerating diet. Encouraged oral intake and will continue current regimen. Will also add incentive spirometer. 07/10/2022 Patient is seen and evaluated and follow-up this morning currently maintained on 3-4 L via nasal cannula continues to be dyspneic with minimal exertion and cough. Pulmonary following patient is maintained on antibiotics along with DuoNeb treatments and recommend to continue. Recommend weaning FiO2 as tolerated and will need to assess further if requiring home oxygen. Patient does not normally wear oxygen in the outpatient setting. Encouraged to increase activity as tolerated and encouraged oral intake. Recommend smoking cessation and this was discussed at length with patient. Patient with incentive spirometer at bedside encourage the patient to continue 10 times every hour while awake. Patient is afebrile denies chest pain or palpitations. No reports of nausea or vomiting noted patient is tolerating diet. Review of systems: Constitutional: No reports of fatigue, fever, or chills Cardiovascular: No reports of chest pain or palpitations Respiratory: No reports of worsening shortness of breath although reports continued shortness of breath with exertion and continued cough GI: No reports of nausea, vomiting, or diarrhea : No reports of dysuria or retention Neurovascular: No reports of weakness or numbness Active Medications Hydrocodone Bitart/Acetaminophen (Hydrocodone/Apap 5-325mg 1 Each Tab) 1 each PO Q6HR PRN PRN Reason: Pain Last Admin: 07/11/22 02:07 Dose: 1 each Albuterol/Ipratropium (Ipratropium-Albuterol 3 Ml Neb) 3 ml INHALATION RT-Q4H [facility] Last Admin: 07/11/22 02:53 Dose: 3 ml Amitriptyline HCl (Amitriptyline Hcl 10 Mg Tab) 10 mg PO [facility] Last Admin: 07/10/22 20:47 Dose: 10 mg Amlodipine Besylate (Amlodipine 5 Mg Tab) 5 mg PO [facility] Last Admin: 07/10/22 20:46 Dose: 5 mg Azithromycin (Azithromycin 500 Mg Tab) 500 mg PO DAILY [facility]; Protocol Stop: 07/12/22 09:01 Last Admin: 07/10/22 13:50 Dose: 500 mg Docusate Sodium (Docusate 100 Mg Cap) 100 mg PO DAILY PRN PRN Reason: Constipation Last Admin: 07/10/22 20:46 Dose: 100 mg Gabapentin (Gabapentin 300 Mg Cap) 300 mg PO [facility] Last Admin: 07/10/22 20:46 Dose: 300 mg Ceftriaxone Sodium 2 gm/ (Sodium Chloride) 50 mls @ 100 mls/hr IVPB Q24HR [facility]; Protocol Last Admin: 07/10/22 07:59 Dose: 100 mls/hr Lisinopril (Lisinopril 20 Mg Tab) 40 mg PO [facility] Last Admin: 07/10/22 20:46 Dose: 40 mg Metoprolol Succinate (Metoprolol Succinate (Er) 100 Mg Tab.Er.24h) 200 mg PO [facility] Last Admin: 07/10/22 20:47 Dose: 200 mg Miscellaneous Information (Pneumonia Protocol Utilized 1 Each Misc) 1 each PO ONCE PRN PRN Reason: Per Protocol Pantoprazole Sodium (Pantoprazole 40 Mg Tablet) 40 mg PO AC-BRKFST [facility] Last Admin: 07/10/22 05:40 Dose: 40 mg Polyethylene Glycol (Polyethylene Glycol 3350 17 Gm Powd.Pack) 17 gm PO DAILY [facility] Last Admin: 07/10/22 07:59 Dose: Not Given Tramadol HCl (Tramadol 50 Mg Tab) 50 mg PO Q6H PRN PRN Reason: Pain Last Admin: 07/09/22 01:29 Dose: 50 mg Venlafaxine HCl (Venlafaxine Hcl Er 150 Mg Cap) 150 mg PO [facility] Last Admin: 07/10/22 20:47 Dose: 150 mg Zolpidem Tartrate (Zolpidem 5 Mg Tab) 5 mg PO HS PRN PRN Reason: Insomnia PHYSICAL EXAMINATION: GENERAL: The patient is alert and oriented x3,Well developed, well nourished. Currently on 4L nasal cannula HEENT: Pupils are round and equally reacting to light. EOMI. No scleral icterus. No conjunctival pallor. Normocephalic, atraumatic. No pharyngeal erythema. No thyromegaly. CARDIOVASCULAR: S1 and S2 muffled PULMONARY: Coarse scattered rhonchi throughout ABDOMEN: Soft, nontender, nondistended, normoactive bowel sounds. No palpable organomegaly. MUSCULOSKELETAL: No joint swelling or deformity. EXTREMITIES: No cyanosis, clubbing, or pedal edema. NEUROLOGICAL: Gross neurological examination did not reveal any focal deficits. SKIN: No rashes. Assessment: Acute hypoxemic respiratory failure secondary to influenza A with pneumonia and sepsis currently requiring 4 L of nasal cannula Hyponatremia, hypovolemic, improving History of hypertension Fibromyalgia with chronic pain Gastroesophageal reflux disease Celiac disease Current tobacco use, 1 pack per day GI prophylaxis DVT prophylaxis Plan: Recommend continue ceftriaxone along with DuoNeb treatments. Pulmonary is following and maintained on 4 L via nasal cannula. Recommend weaning FiO2 as tolerated, possible need for home O2 evaluation Sputum culture negative Recommend continued use of incentive spirometer and encourage the patient to continue with coughing and deep breathing. Due to multiple complex medical issues, prognosis is guarded. Possible discharge in the next 24-48 hours The impression and plan of care has been dictated by Kaia García, Nurse Practitioner as directed. Dr. Conner MD I have performed a history and examination and MDM of this patient, discussed the same with the dictator, and agree with the dictator's assessment and plan as written ,documented as a scribe. Based on total visit time, I have performed more than 50% of the visit. Objective - Vital Signs Vital signs: Vital Signs Temp 97.4 F L 07/10/22 07:27 Pulse 80 07/10/22 11:36 Resp 16 07/10/22 08:00 BP 152/84 07/10/22 07:27 Pulse Ox 98 07/10/22 07:27 FiO2 40 07/07/22 08:19 Intake & Output 07/09/22 07/10/22 07/10/22 18:59 06:59 18:59 Intake Total 1150 Balance 1150 Intake: Intake, IV Titration 600 Amount Sodium Chloride 0.9% 1, 600 000 ml @ 75 mls/hr IV . [id number] [facility] Rx#:[id number] Oral 550 Other: Voiding Method Toilet Toilet # Voids 3 1 - Labs CBC & Chem 7: 07/09/22 04:21 07/09/22 04:21 Labs: Microbiology - Last 24 Hours (Table) 07/06/22 23:16 Blood Culture - Preliminary Blood No Growth after 72 hours 07/06/22 23:00 Blood Culture - Preliminary Blood No Growth after 72 hours 07/07/22 15:43 Gram Stain - Final Sputum Sputum Culture - Final
[2022-07-11] MEDS: PANTOPRAZOLE 40 MG TABLET PO SCH (06:38)
--- NOTE | 2022-07-11 08:05 | XR ---
EXAMINATION TYPE: XR chest 1V portable DATE OF EXAM: 07/11/2022 Comparison: 07/09/2022 Clinical History: 52 year-old female shortness of breath Findings: Underlying [id number] left pleural effusion and left basilar opacity. Mild interstitial densit y remains. Some of the right suprahilar opacity compared to prior study. Heart normal size. Impression: [id number] left pleural effusion with adjacent atelectasis and/or consolidation is relatively similar. Slight improving density right suprahilar region.
[2022-07-11] MEDS: polyethylene glycoL 3350 17 GM POWD.PACK PO SCH (08:27)
[2022-07-11] MEDS: AZITHROMYCIN 500 MG TAB PO SCH (08:28)
[2022-07-11 09:51] LABS: HCT 30.5 % (37.2-46.3); HGB 10.5 g/dL (12.0-15.0); MCH 33.1 pg (27.0-32.0); MCHC 34.4 g/dL (32.0-37.0); MCV 96.2 fL (80.0-97.0); Mean Platelet Volume 9.5 fL (9.5-12.2); NRBC Per 100 WBC 0 /100 WBCS (0.0-0.0); Platelet Count 491 X 10*3/uL (140-440); RBC 3.17 X 10*6/uL (4.10-5.20); RDW 13.5 % (11.5-14.5); WBC 8.92 X 10*3/uL (4.50-10.00)
[2022-07-11 10:04] LABS: African American GFR (CKD) 137.8 (60.0-200.0); Anion Gap 10.9 mmol/L (10.00-18.00); BUN/Creat Ratio 19.5 Ratio (12.00-20.00); Blood Urea Nitrogen 7.8 mg/dL (9.0-27.0); Carbon Dioxide 27.1 mmol/L (20.0-27.5); Non-African American GFR(CKD) 118.9 (60.0-200.0); Potassium 3.9 mmol/L (3.5-5.5)
--- NOTE | 2022-07-11 10:50 | P.PN ---
Subjective Progress Note Date: 07/11/22 Influenza A positive, hypoxemia 52-year-old female who sees a family physician in [place], [place], who went to an outside hospital, i.e. [facility], for complaints of chest congestion, shortness of breath, cough, and generally just not feeling well. The patient has not been feeling well from the day before [place]. She is apparently seeing a number of different doctors at various facilities, and more recently, because of worsening symptoms, went to [facility], and was transferred d own to our hospital, for additional monitoring and management. The patient apparently did test positive for influenza A. Also, chest x-ray showed an extensive pneumonia, left lower lobe. She apparently was placed on BiPAP initially in the emergency room, with settings of 8 over 4 and 40%. She's currently on 4 L. We see her today in room #6, down in the emergency department. The patient is currently on Rocephin and Zithromax. We discontinue the Tamiflu. It is not indicated in this patient. She apparently has a history of gastroesophageal reflux disease, hypertension, fibromyalgia, chronic headache, and celiac disease. She is a previous smoker. White count 7.6, hemoglobin 11.1, hematocrit 33, and platelet count of 263,000. Sodium 132, potassium 3.4, chlorides 99, CO2 24, BUN 16, creatinine 0.41. Chest x-ray shows an extensive pneumonia, and the left midlung left lower lobe. She also may have a few scattered opacities in the right lower lobe. Progress note dated 07/08/2022. 52-year-old female seen in the emergency department, in consultation, yesterday. Please see the note above. Currently, the patient is on 5 L of oxygen. She's not receiving any IV fluids. She was admitted with a diagnosis of influenza A, and left lower lobe pneumonia. The patient is still having shortness of breath, chest congestion, and cough. White count 13.5, hemoglobin 9.9, hematocrit 29.6, and platelet count was 327,000. Sodium 133, potassium 3.8, chlorides 97, CO2 27, anion gap 9, BUN 14, creatinine 0.5. Pro-calcitonin level was 1.73. I'm evaluating this patient today on 07/09/2022 in follow-up on a general medical floor. Patient is currently resting comfortably, up in bed, on 4 L nasal cannula. Chest x-ray from today shows persistent but improved left mid to lower lung acute infiltrate and/or atelectasis with stable patchy right basilar atelectasis and/or limited infiltrate. There is slightly more prominent right supra regular acute infiltrate. There is a new small left pleural effusion. Sputum culture was negative. Blood culture shows no growth at 48 hours. CBC from today shows mild leukocytosis with a WBC count of 13.7, hemoglobin 10.1, hematocrit 29.6, platelets 373,000. Today shows a sodium of 133, potassium 3.7, chloride 94, serum CO2 30, BUN 9.4, creatinine 0.4, glucose 83. Procalcitonin from yesterday was quite high at 1.73. Patient completed his course of Zithromax, and is currently receiving Rocephin for empiric therapy. Patient has remained afebrile overnight. No IV maintenance fluids infusing. Continues receiving DuoNeb inhalation. Vital signs remain stable. 07/10/2021, the patient remains on 5 L of oxygen by nasal cannula. She is a chronic smoker. She denies having any form of chronic respiratory difficulties on outpatient basis. The patient was initially placed on a BiPAP and following that she was transitioned to 5 L O2 nasal cannula. She is positive for influenza. Her pro calcitonin level was also elevated at 1.7 and the patient was given a combination of Rocephin and Zithromax. Her breath sounds are still diminished. She is using the senna spirometer. She has a congested cough. Unable to bring up much of sputum at this point in time. Her recovery was extremely slow. She does have a pneumonia in her right upper lobe and left lower lobe and a CAT scan of the chest that was done outpatient basis showed extensive pneumonia in her left lower lobe. This was involving the posterior segment of the left lower lobe in addition to the lateral segments. Minimal inflammatory changes are also seen in the right lower lobe and upper lobes bilaterally. 07/11/2021, the patient is still struggling with her breathing. She is unable to fully expand as of October coughing spells. She has some chest congestion. Unable to bring up much of sputum. Her repeat chest x-ray showing persistent consolidation of the left lower lobe which is essentially unchanged. Nevertheless, her white cell count is currently down to 8 and her pro-calcitonin level has dropped down to 0.29. Sodium is at 133 with a potassium level of 3.9 and a bicarb is 95 with a bicarb bicarb of 27 with a chloride of 95. In terms of antibiotic management, the patient is currently covered with accommodation of Rocephin and Zithromax. She remains on DuoNeb nebulized treatments [id number], with also start solumedrol Objective - Vital Signs Vital signs: Vital Signs Temp 98.1 F 07/11/22 07:51 Pulse 83 07/11/22 08:11 Resp 19 07/11/22 07:51 BP 148/85 07/11/22 07:51 Pulse Ox 97 07/11/22 07:51 FiO2 40 07/07/22 08:19 Intake & Output 07/10/22 07/11/22 07/11/22 18:59 06:59 18:59 Intake Total 530 180 Balance 530 180 Intake: Intake, IV Titration 50 Amount cefTRIAXone 2 gm In 50 Sodium Chloride 0.9% 50 ml @ 100 mls/hr IVPB Q24HR [facility] Rx#:[id number] Oral 480 180 Other: Voiding Method Toilet # Voids 1 - Exam Alert, in no acute distress, oriented 3. The patient is currently on 5 L. HEENT examination is grossly unremarkable. Neck supple. Full range of motion. No adenopathy thyromegaly or neck vein distention. Cardiovascular examination reveals regular rhythm rate. S1-S2 normal. No S3 or S4. No discernible murmur noted. Heart rate 88 bpm. Lungs reveal scattered bilateral rhonchi. Breath sounds equal bilaterally. Without wheezes. continues to have congested nonproductive cough. No accessory muscle use. On 4 L nasal cannula. Abdomen soft bowel sounds are heard. No masses or tenderness. Extremities are intact. No cyanosis clubbing or edema. Skin is without rash or lesion. Neurologic examination is brief but nonfocal. - Labs CBC & Chem 7: 07/11/22 06:05 07/11/22 06:05 Labs: Abnormal Lab Results - Last 24 Hours (Table) 07/11/22 07/11/22 07/11/22 Range/Units 06:05 06:05 06:05 RBC 3.17 L (4.10-5.20) X 10*6/uL Hgb 10.5 L (12.0-15.0) g/dL Hct 30.5 L (37.2-46.3) % MCH 33.1 H (27.0-32.0) pg Plt Count 491 H (140-440) X 10*3/uL Sodium 133 L (135-145) mmol/L Chloride 95 L (96-109) mmol/L BUN 7.8 L (9.0-27.0) mg/dL Creatinine 0.4 L (0.6-1.5) mg/dL Procalcitonin 0.29 H (0.02-0.09) ng/mL Microbiology - Last 24 Hours (Table) 07/06/22 23:00 Blood Culture - Preliminary Blood No Growth after 96 hours 07/06/22 23:16 Blood Culture - Preliminary Blood No Growth after 96 hours Assessment and Plan Plan: Acute respiratory illness, secondary to influenza A infection, and left lower lobe pneumonia. Procalcitonin elevated at 1.73she, I believe this patient started off with an influenza infection should she obviously got infected with bacteria with an extensive left lower lobe pulmonary consolidation. Acute hypoxemic respiratory failure, secondary to above. History of hypertension. History of gastroesophageal reflux disease. History of fibromyalgia. History of chronic headache. History of celiac disease. Prior history of tobacco use. Plan: repeat pro-calcitonin level is improving Repeat chest x-ray in a.m. stable consolidation of the left lower lobe Continue same antibiotic coverage Add IV Solu-Medrol Continue using the incentive spirometer Patient's medications, labs, chest x-ray reviewed. Continue supplemental oxygen to maintain oxygen saturation of 92% or greater Continue ceftriaxone for empiric therapy and add zithromax 500 mg daily Continue DuoNeb inhalation We will continue to follow
[2022-07-11 11:36] LABS: Basophils # (A) 0.03 X 10*3/uL (0.00-0.10); Basophils % (A) 0.3 %; Eosinophils # (A) 0.12 X 10*3/uL (0.04-0.35); Eosinophils % (A) 1.3 %; Immature Grans, Automated 2.8 %; Lymphocytes # (A) 2.24 X 10*3/uL (0.90-5.00); Lymphocytes % (A) 25.1 %; Monocytes # (A) 0.65 X 10*3/uL (0.20-1.00); Monocytes % (A) 7.3 %; Neutrophils # (A) 5.63 X 10*3/uL (1.80-7.70); Neutrophils % (A) 63.2 %; RBC Morphology NORMAL
[2022-07-11] MEDS: methylPREDNISolone SOD SUCCI 125 MG/2 ML VIAL IV SCH ×2 (12:20→17:15)
--- NOTE | 2022-07-11 14:29 | P.PN ---
Subjective Progress Note Date: 07/11/22 Principal diagnosis: Pneumonia Patient is a 52-year-old female with a past medical history pertinent for hypertension GERD started having a problem with increasing shortness of breath and coughing symptom has been going on since , patient was diagnosed with acute influenza A at the outside facility and subsequently transferred to [facility] for management of underlying pneumonia. On today's evaluation that is 07/11/2022, the patient remains to be afebrile, the patient is breathing comfortable on nasal cannula oxygen, the patient left- sided chest pain has decreased in intensity cough also decrease in intensity not bringing up any sputum some nausea but no vomiting no abdominal pain or diarrhea Objective - Vital Signs Vital signs: Vital Signs Temp 98.1 F 07/11/22 07:51 Pulse 88 07/11/22 11:57 Resp 19 07/11/22 07:51 BP 148/85 07/11/22 07:51 Pulse Ox 97 07/11/22 07:51 FiO2 40 07/07/22 08:19 Intake & Output 07/10/22 07/11/22 07/11/22 18:59 06:59 18:59 Intake Total 530 180 Balance 530 180 Intake: Intake, IV Titration 50 Amount cefTRIAXone 2 gm In 50 Sodium Chloride 0.9% 50 ml @ 100 mls/hr IVPB Q24HR [facility] Rx#:[id number] Oral 480 180 Other: Voiding Method Toilet # Voids 1 - Exam GENERAL DESCRIPTION: A middle-aged female lying in bed in no distress RESPIRATORY SYSTEM: Unlabored breathing , decreased breath sounds at left base HEART: S1 S2 regular rate and rhythm , ABDOMEN: Soft , no tenderness EXTREMITIES: No edema feet - Labs CBC & Chem 7: 07/11/22 06:05 07/11/22 06:05 Labs: Abnormal Lab Results - Last 24 Hours (Table) 07/11/22 07/11/22 07/11/22 Range/Units 06:05 06:05 06:05 RBC 3.17 L (4.10-5.20) X 10*6/uL Hgb 10.5 L (12.0-15.0) g/dL Hct 30.5 L (37.2-46.3) % MCH 33.1 H (27.0-32.0) pg Plt Count 491 H (140-440) X 10*3/uL Plt Count Comment INCREASED A Immature Gran # 0.25 H (0.00-0.04) X 10*3/uL Sodium 133 L (135-145) mmol/L Chloride 95 L (96-109) mmol/L BUN 7.8 L (9.0-27.0) mg/dL Creatinine 0.4 L (0.6-1.5) mg/dL Procalcitonin 0.29 H (0.02-0.09) ng/mL Microbiology - Last 24 Hours (Table) 07/06/22 23:00 Blood Culture - Preliminary Blood No Growth after 96 hours 07/06/22 23:16 Blood Culture - Preliminary Blood No Growth after 96 hours Assessment and Plan (1) Left lower lobe pneumonia Current Visit: Yes Status: Acute Code(s): J18.9 - PNEUMONIA, UNSPECIFIED ORGANISM SNOMED Code(s): 159377258 Plan: 1patient presented to hospital with increasing shortness of breath cough symptom has been going on for more than a week now this patient with likely acute influenza a and possible component of secondary bacterial pneumonia patient has been more than 5 days of symptom onset as well as influenza and not ideal candidate for Tamiflu which has been discontinued. 2 patient did have elevated procalcitonin of 1.73. Sputum has been negative for resistant pathogen blood cultures so far negative 3patient blood culture done at outside facility positive for Haemophilus influenzae blood culture at this facility has been negative patient is currently covered with Rocephin to continue and monitoring her glucose closely Time with Patient: Less than 30
--- NOTE | 2022-07-11 19:20 | P.PN ---
Subjective Progress Note Date: 07/11/22 This is a 52 year old female medical history of hypertension, GERD/Reflux, fibromyalgia, who is a current pack per day smoker. 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 She has been in the ER/Urgent care on multiple occasions this last week with reported headache and overall not feeling well. This last time she reported to the [place] ER she was found to be significantly short of breath with reports of fever/chills, shortness of breath, cough with yellow/green sputum, and reports decreased appetite and nausea. Denies chest pain. There she was found to have elevated procalcitonin at 3.6, as well as white count of 13.9. D-Dimer was also elevated and chest CT angiography performed showing left lower lobe pneumonia, no pulmonary embolism detected. Found to be positive for influenza A and also had low blood pressure and low sodium. She was started on IV antibiotics and bipap and transferred to [facility] ER for further evaluation and work up. Follow up chest xray at [facility] showing hazy appearance of the left mid and lower lung which appears new from July 04 chest x-ray. There is a right basilar airspace opacity possibly some aspiration. Sodium is now 132, potassium 3.4. White count 7.6. Requiring 4 to 5 L of oxygen. Infectious disease and pulmonary services are consulted. Resumed on appropriate home medications. Saline will be decreased to 75 mls/hr. 07/09/2022 Patient seen and evaluated and follow-up this morning with pulmonary following and patient is maintained on DuoNeb's and is continuing to receive IV ceftriaxone. Patient has completed Zithromax. Sputum culture was showing normal alex and blood cultures remain negative. Recommend continue duo nebs an d encouraged to increase activity as tolerated. WBC remains elevated at 13.74, hemoglobin is stable at 10.1, sodium is 133 with a potassium of 3.7 and creatinine is 0.4. Patient remains on 4 L via nasal cannula and recommend to wean FiO2 as tolerated. Chest x-ray ordered today and pending. Patient is afebrile and continues to report shortness of breath and difficulty in breathing with cough. Patient denies chest pain or palpitations. No reports of nausea or vomiting and patient tolerating diet. Encouraged oral intake and will continue current regimen. Will also add incentive spirometer. 07/10/2022 Patient is seen and evaluated and follow-up this morning currently maintained on 3-4 L via nasal cannula continues to be dyspneic with minimal exertion and cough. Pulmonary following patient is maintained on antibiotics along with DuoNeb treatments and recommend to continue. Recommend weaning FiO2 as tolerated and will need to assess further if requiring home oxygen. Patient does not normally wear oxygen in the outpatient setting. Encouraged to increase activity as tolerated and encouraged oral intake. Recommend smoking cessation and this was discussed at length with patient. Patient with incentive spirometer at bedside encourage the patient to continue 10 times every hour while awake. Patient is afebrile denies chest pain or palpitations. No reports of nausea or vomiting noted patient is tolerating diet. 07/11/2022 Patient is seen today continues to be dyspneic with exertion although reports has been getting up and walking around more frequently. Patient continues to require oxygen and titrating currently at 3 L via nasal cannula. Patient does not wear oxygen at home and will perform home O2 evaluation. Chest x-ray shows likely comparable to previous and continued pleural effusions although some improvement in aeration. Patient continues to be experiencing wheezing and cough and is maintained on IV steroids along with DuoNeb treatments. Patient denies chest pain or palpitations reports cough and denies nausea or vomiting. Patient with a hoarse voice most likely due to her cough. Patient is being followed by pulmonary along with infectious disease and maintained on ceftriaxone and Zithromax and will continue. Cultures have been negative. En couraged incentive spirometer use along with increased activity. Recommend repeat chest x-ray and close follow-up. Review of systems: Constitutional: No reports of fatigue, fever, or chills Cardiovascular: No reports of chest pain or palpitations Respiratory: No reports of worsening shortness of breath although reports continued shortness of breath with exertion and continued cough GI: No reports of nausea, vomiting, or diarrhea : No reports of dysuria or retention Neurovascular: No reports of weakness or numbness Active Medications Hydrocodone Bitart/Acetaminophen (Hydrocodone/Apap 5-325mg 1 Each Tab) 1 each PO Q6HR PRN PRN Reason: Pain Last Admin: 07/11/22 08:27 Dose: 1 each Albuterol/Ipratropium (Ipratropium-Albuterol 3 Ml Neb) 3 ml INHALATION RT-Q4H ALLI Last Admin: 07/11/22 16:33 Dose: 3 ml Amitriptyline HCl (Amitriptyline Hcl 10 Mg Tab) 10 mg PO [facility] Last Admin: 07/10/22 20:47 Dose: 10 mg Amlodipine Besylate (Amlodipine 5 Mg Tab) 5 mg PO [facility] Last Admin: 07/10/22 20:46 Dose: 5 mg Azithromycin (Azithromycin 500 Mg Tab) 500 mg PO DAILY [facility]; Protocol Stop: 07/12/22 09:01 Last Admin: 07/11/22 08:28 Dose: 500 mg Docusate Sodium (Docusate 100 Mg Cap) 100 mg PO DAILY PRN PRN Reason: Constipation Last Admin: 07/10/22 20:46 Dose: 100 mg Gabapentin (Gabapentin 300 Mg Cap) 300 mg PO [facility] Last Admin: 07/10/22 20:46 Dose: 300 mg Ceftriaxone Sodium 2 gm/ (Sodium Chloride) 50 mls @ 100 mls/hr IVPB Q24HR [facility]; Protocol Last Admin: 07/11/22 08:26 Dose: 100 mls/hr Lisinopril (Lisinopril 20 Mg Tab) 40 mg PO [facility] Last Admin: 07/10/22 20:46 Dose: 40 mg Methylprednisolone Sodium Succinate (Methylprednisolone Sod Succi 125 Mg/2 Ml Vial) 60 mg IV Q6HR [facility] Last Admin: 07/11/22 17:15 Dose: 60 mg Metoprolol Succinate (Metoprolol Succinate (Er) 100 Mg Tab.Er.24h) 200 mg PO [facility] Last Admin: 07/10/22 20:47 Dose: 200 mg Miscellaneous Information (Pneumonia Protocol Utilized 1 Each Misc) 1 each PO ONCE PRN PRN Reason: Per Protocol Pantoprazole Sodium (Pantoprazole 40 Mg Tablet) 40 mg PO [id number]-[id number] [facility] Last Admin: 07/11/22 06:38 Dose: 40 mg Polyethylene Glycol (Polyethylene Glycol 3350 17 Gm Powd.Pack) 17 gm PO DAILY [facility] Last Admin: 07/11/22 08:27 Dose: Not Given Tramadol HCl (Tramadol 50 Mg Tab) 50 mg PO Q6H PRN PRN Reason: Pain Last Admin: 07/09/22 01:29 Dose: 50 mg Venlafaxine HCl (Venlafaxine Hcl Er 150 Mg Cap) 150 mg PO [facility] Last Admin: 07/10/22 20:47 Dose: 150 mg Zolpidem Tartrate (Zolpidem 5 Mg Tab) 5 mg PO HS PRN PRN Reason: Insomnia PHYSICAL EXAMINATION: GENERAL: The patient is alert and oriented x3,Well developed, well nourished. Currently on 4L nasal cannula HEENT: Pupils are round and equally reacting to light. EOMI. No scleral icterus. No conjunctival pallor. Normocephalic, atraumatic. No pharyngeal erythema. No thyromegaly. CARDIOVASCULAR: S1 and S2 muffled PULMONARY: Coarse scattered rhonchi throughout ABDOMEN: Soft, nontender, nondistended, normoactive bowel sounds. No palpable organomegaly. MUSCULOSKELETAL: No joint swelling or deformity. EXTREMITIES: No cyanosis, clubbing, or pedal edema. NEUROLOGICAL: Gross neurological examination did not reveal any focal deficits. SKIN: No rashes. Assessment: Acute hypoxemic respiratory failure secondary to influenza A with pneumonia and sepsis currently requiring 4 L of nasal cannula Hyponatremia, hypovolemic, improving History of hypertension Fibromyalgia with chronic pain Gastroesophageal reflux disease Celiac disease Current tobacco use, 1 pack per day GI prophylaxis DVT prophylaxis Plan: Recommend continue ceftriaxone and Zithromax along with DuoNeb treatments. Pulmonary is following and maintained on 4 L via nasal cannula. Recommend weaning FiO2 as tolerated, possible need for home O2 evaluation Sputum culture negative Recommend continued use of incentive spirometer and encourage the patient to continue with coughing and deep breathing. Infectious disease is following as well and patient will be continued on antibiotics Due to multiple complex medical issues, prognosis is guarded. Possible discharge in the next 24-48 hours The impression and plan of care has been dictated by Kaia García, Nurse Practitioner as directed. Dr. Conner MD I have performed a history and examination and MDM of this patient, discussed the same with the dictator, and agree with the dictator's assessment and plan as written ,documented as a scribe. Based on total visit time, I have performed more than 50% of the visit. Objective - Vital Signs Vital signs: Vital Signs Temp 98.1 F 07/11/22 07:51 Pulse 83 07/11/22 08:11 Resp 19 07/11/22 07:51 BP 148/85 07/11/22 07:51 Pulse Ox 97 07/11/22 07:51 FiO2 40 07/07/22 08:19 Intake & Output 07/10/22 07/11/22 07/11/22 18:59 06:59 18:59 Intake Total 530 180 Balance 530 180 Intake: Intake, IV Titration 50 Amount cefTRIAXone 2 gm In 50 Sodium Chloride 0.9% 50 ml @ 100 mls/hr IVPB Q24HR [facility] Rx#:[id number] Oral 480 180 Other: Voiding Method Toilet - Labs CBC & Chem 7: 07/11/22 06:05 07/11/22 06:05 Labs: Microbiology - Last 24 Hours (Table) 07/06/22 23:00 Blood Culture - Preliminary Blood No Growth after 96 hours 07/06/22 23:16 Blood Culture - Preliminary Blood No Growth after 96 hours
[2022-07-11] MEDS ORDERED: FUROSEMIDE 10 MG/ML 4 ML VIAL IV STA (19:21)
[2022-07-11] MEDS: VENLAFAXINE HCL ER 150 MG CAP PO SCH (20:19)
[2022-07-11] MEDS: amLODIPine 5 MG TAB PO SCH (20:19)
[2022-07-11] MEDS: GABAPENTIN 300 MG CAP PO SCH (20:19)
[2022-07-11] MEDS: METOPROLOL SUCCINATE (ER) 100 MG TAB.ER.24H PO SCH (20:19)
[2022-07-11] MEDS: AMITRIPTYLINE HCL 10 MG TAB PO SCH (20:19)
[2022-07-11] MEDS: lisinopriL 20 MG TAB PO SCH (20:19)
[2022-07-12] MEDS: methylPREDNISolone SOD SUCCI 125 MG/2 ML VIAL IV SCH ×5 (00:06→23:39)
[2022-07-12] MEDS: IPRATROPIUM-ALBUTEROL 3 ML NEB INHALATION SCH ×6 (02:50→20:40)
[2022-07-12] MEDS: PANTOPRAZOLE 40 MG TABLET PO SCH (06:19)
--- NOTE | 2022-07-12 07:24 | XR ---
EXAMINATION TYPE: XR chest 1V portable DATE OF EXAM: 07/12/2022 7:19 AM COMPARISON: Chest radiographs from 07/11/2022 TECHNIQUE: XR chest 1V portable Portable AP radiograph of the chest. CLINICAL INDICATION:Female, 52 years old with history of shortness of breath; FINDINGS: Lungs/Pleura: Small to moderate left perfusion is redemonstrated with associated left basilar opacity . Previously seen right suprahilar opacity is less prominent on today's exam. No pneumothorax. Heart/mediastinum: Cardiomediastinal silhouette is unremarkable. Musculoskeletal: No acute osseous pathology. IMPRESSION: Small to moderate left pleural effusion with adjacent atelectasis and/or consolidation is unchanged. Improvement in right suprahilar region density.
[2022-07-12] MEDS: polyethylene glycoL 3350 17 GM POWD.PACK PO SCH (08:43)
[2022-07-12] MEDS: AZITHROMYCIN 500 MG TAB PO SCH (08:49)
--- NOTE | 2022-07-12 12:26 | P.PN ---
Subjective Progress Note Date: 07/12/22 Influenza A positive, hypoxemia 52-year-old female who sees a family physician in [place], [place], who went to an outside hospital, i.e. [facility], for complaints of chest congestion, shortness of breath, cough, and generally just not feeling well. The patient has not been feeling well from the day before [place]. She is apparently seeing a number of different doctors at various facilities, and more recently, because of worsening symptoms, went to [facility], and was transferred d own to our hospital, for additional monitoring and management. The patient apparently did test positive for influenza A. Also, chest x-ray showed an extensive pneumonia, left lower lobe. She apparently was placed on BiPAP initially in the emergency room, with settings of 8 over 4 and 40%. She's currently on 4 L. We see her today in room #6, down in the emergency department. The patient is currently on Rocephin and Zithromax. We discontinue the Tamiflu. It is not indicated in this patient. She apparently has a history of gastroesophageal reflux disease, hypertension, fibromyalgia, chronic headache, and celiac disease. She is a previous smoker. White count 7.6, hemoglobin 11.1, hematocrit 33, and platelet count of 263,000. Sodium 132, potassium 3.4, chlorides 99, CO2 24, BUN 16, creatinine 0.41. Chest x-ray shows an extensive pneumonia, and the left midlung left lower lobe. She also may have a few scattered opacities in the right lower lobe. Progress note dated 07/08/2022. 52-year-old female seen in the emergency department, in consultation, yesterday. Please see the note above. Currently, the patient is on 5 L of oxygen. She's not receiving any IV fluids. She was admitted with a diagnosis of influenza A, and left lower lobe pneumonia. The patient is still having shortness of breath, chest congestion, and cough. White count 13.5, hemoglobin 9.9, hematocrit 29.6, and platelet count was 327,000. Sodium 133, potassium 3.8, chlorides 97, CO2 27, anion gap 9, BUN 14, creatinine 0.5. Pro-calcitonin level was 1.73. I'm evaluating this patient today on 07/09/2022 in follow-up on a general medical floor. Patient is currently resting comfortably, up in bed, on 4 L nasal cannula. Chest x-ray from today shows persistent but improved left mid to lower lung acute infiltrate and/or atelectasis with stable patchy right basilar atelectasis and/or limited infiltrate. There is slightly more prominent right supra regular acute infiltrate. There is a new small left pleural effusion. Sputum culture was negative. Blood culture shows no growth at 48 hours. CBC from today shows mild leukocytosis with a WBC count of 13.7, hemoglobin 10.1, hematocrit 29.6, platelets 373,000. Today shows a sodium of 133, potassium 3.7, chloride 94, serum CO2 30, BUN 9.4, creatinine 0.4, glucose 83. Procalcitonin from yesterday was quite high at 1.73. Patient completed his course of Zithromax, and is currently receiving Rocephin for empiric therapy. Patient has remained afebrile overnight. No IV maintenance fluids infusing. Continues receiving DuoNeb inhalation. Vital signs remain stable. 07/10/2021, the patient remains on 5 L of oxygen by nasal cannula. She is a chronic smoker. She denies having any form of chronic respiratory difficulties on outpatient basis. The patient was initially placed on a BiPAP and following that she was transitioned to 5 L O2 nasal cannula. She is positive for influenza. Her pro calcitonin level was also elevated at 1.7 and the patient was given a combination of Rocephin and Zithromax. Her breath sounds are still diminished. She is using the senna spirometer. She has a congested cough. Unable to bring up much of sputum at this point in time. Her recovery was extremely slow. She does have a pneumonia in her right upper lobe and left lower lobe and a CAT scan of the chest that was done outpatient basis showed extensive pneumonia in her left lower lobe. This was involving the posterior segment of the left lower lobe in addition to the lateral segments. Minimal inflammatory changes are also seen in the right lower lobe and upper lobes bilaterally. 07/11/2021, the patient is still struggling with her breathing. She is unable to fully expand as of October coughing spells. She has some chest congestion. Unable to bring up much of sputum. Her repeat chest x-ray showing persistent consolidation of the left lower lobe which is essentially unchanged. Nevertheless, her white cell count is currently down to 8 and her pro-calcitonin level has dropped down to 0.29. Sodium is at 133 with a potassium level of 3.9 and a bicarb is 95 with a bicarb bicarb of 27 with a chloride of 95. In terms of antibiotic management, the patient is currently covered with accommodation of Rocephin and Zithromax. She remains on DuoNeb nebulized treatments [id number], with also start solumedrol 07/12/2021, the patient continues to improve and she is currently on 2 L oxygen by nasal cannula. A short of breath. Aggressively using the incentive spirometer. No new labs are available from today. She remains on Rocephin and Zithromax and she is on DuoNeb and IV Solu-Medrol. She is currently on 2 L. No significant sputum production. No nausea or vomiting or diarrhea or abdominal pain. Objective - Vital Signs Vital signs: Vital Signs Temp 97.7 F 07/12/22 07:16 Pulse 92 07/12/22 11:47 Resp 18 07/12/22 07:16 BP 136/84 07/12/22 07:16 Pulse Ox 93 L 07/12/22 07:16 FiO2 40 07/07/22 08:19 Intake & Output 07/11/22 07/12/22 07/12/22 18:59 06:59 18:59 Intake Total 360 Balance 360 Intake: Oral 360 Other: # Voids 1 1 - Exam Alert, in no acute distress, oriented 3. The patient is currently on 2 L nasal cannula HEENT examination is grossly unremarkable. Neck supple. Full range of motion. No adenopathy thyromegaly or neck vein distention. Cardiovascular examination reveals regular rhythm rate. S1-S2 normal. No S3 or S4. No discernible murmur noted. Lungs reveal scattered bilateral rhonchi. Breath sounds equal bilaterally. Without wheezes. continues to have congested nonproductive cough. No accessory muscle use. On 4 L nasal cannula. Abdomen soft bowel sounds are heard. No masses or tenderness. Extremities are intact. No cyanosis clubbing or edema. Skin is without rash or lesion. Neurologic examination is brief but nonfocal. - Labs CBC & Chem 7: 07/11/22 06:05 07/11/22 06:05 Labs: Microbiology - Last 24 Hours (Table) 07/06/22 23:00 Blood Culture - Preliminary Blood No Growth after 120 hours 07/06/22 23:16 Blood Culture - Preliminary Blood No Growth after 120 hours Assessment and Plan Plan: Acute respiratory illness, secondary to influenza A infection, and left lower lobe pneumonia. Procalcitonin elevated at 1.73she, I believe this patient star deann off with an influenza infection should she obviously got infected with bacteria with an extensive left lower lobe pulmonary consolidation. For now, the patient is improving. She has been weaned down to 2 L of oxygen by nasal cannula. Acute hypoxemic respiratory failure, secondary to above. Clinically improving. Oxygen patient is also improving. History of hypertension. History of gastroesophageal reflux disease. History of fibromyalgia. History of chronic headache. History of celiac disease. Prior history of tobacco use. Plan: Clinically improving. Continue same antibiotic coverage Repeat chest x-ray shows a small to moderate-sized left-sided pleural effusion along with some adjacent atelectasis and consolidation, essentially unchanged and as improvement in the right suprahilar region density. The patient's pro- calcitonin level is also improving is currently down to 0.29. IV Solu-Medrol Continue using the incentive spirometer Patient's medications, labs, chest x-ray reviewed. Continue supplemental oxygen to maintain oxygen saturation of 92% or greater Continue ceftriaxone for empiric therapy and zithromax 500 mg daily Continue DuoNeb inhalation We will continue to follow
--- NOTE | 2022-07-12 19:03 | P.PN ---
Subjective Progress Note Date: 07/12/22 This is a 52 year old female medical history of hypertension, GERD/Reflux, fibromyalgia, who is a current pack per day smoker. 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 She has been in the ER/Urgent care on multiple occasions this last week with reported headache and overall not feeling well. This last time she reported to the [facility] ER she was found to be significantly short of breath with reports of fever/chills, shortness of breath, cough with yellow/green sputum, and reports decreased appetite and nausea. Denies chest pain. There she was found to have elevated procalcitonin at 3.6, as well as white count of 13.9. D-Dimer was also elevated and chest CT angiography performed showing left lower lobe pneumonia, no pulmonary embolism detected. Found to be positive for influenza A and also had low blood pressure and low sodium. She was started on IV antibiotics and bipap and transferred to [facility] ER for further evaluation and work up. Follow up chest xray at [facility] showing hazy appearance of the left mid and lower lung which appears new from July 04 chest x-ray. There is a right basilar airspace opacity possibly some aspiration. Sodium is now 132, potassium 3.4. White count 7.6. Requiring 4 to 5 L of oxygen. Infectious disease and pulmonary services are consulted. Resumed on appropriate home medications. Saline will be decreased to 75 mls/hr. 07/09/2022 Patient seen and evaluated and follow-up this morning with pulmonary following and patient is maintained on DuoNeb's and is continuing to receive IV ceftriaxone. Patient has completed Zithromax. Sputum culture was showing normal alex and blood cultures remain negative. Recommend continue duo nebs an d encouraged to increase activity as tolerated. WBC remains elevated at 13.74, hemoglobin is stable at 10.1, sodium is 133 with a potassium of 3.7 and creatinine is 0.4. Patient remains on 4 L via nasal cannula and recommend to wean FiO2 as tolerated. Chest x-ray ordered today and pending. Patient is afebrile and continues to report shortness of breath and difficulty in breathing with cough. Patient denies chest pain or palpitations. No reports of nausea or vomiting and patient tolerating diet. Encouraged oral intake and will continue current regimen. Will also add incentive spirometer. 07/10/2022 Patient is seen and evaluated and follow-up this morning currently maintained on 3-4 L via nasal cannula continues to be dyspneic with minimal exertion and cough. Pulmonary following patient is maintained on antibiotics along with DuoNeb treatments and recommend to continue. Recommend weaning FiO2 as tolerated and will need to assess further if requiring home oxygen. Patient does not normally wear oxygen in the outpatient setting. Encouraged to increase activity as tolerated and encouraged oral intake. Recommend smoking cessation and this was discussed at length with patient. Patient with incentive spirometer at bedside encourage the patient to continue 10 times every hour while awake. Patient is afebrile denies chest pain or palpitations. No reports of nausea or vomiting noted patient is tolerating diet. 07/11/2022 Patient is seen today continues to be dyspneic with exertion although reports has been getting up and walking around more frequently. Patient continues to require oxygen and titrating currently at 3 L via nasal cannula. Patient does not wear oxygen at home and will perform home O2 evaluation. Chest x-ray shows likely comparable to previous and continued pleural effusions although some improvement in aeration. Patient continues to be experiencing wheezing and cough and is maintained on IV steroids along with DuoNeb treatments. Patient denies chest pain or palpitations reports cough and denies nausea or vomiting. Patient with a hoarse voice most likely due to her cough. Patient is being followed by pulmonary along with infectious disease and maintained on ceftriaxone and Zithromax and will continue. Cultures have been negative. En couraged incentive spirometer use along with increased activity. Recommend repeat chest x-ray and close follow-up. 07/12/2022 Patient is seen in follow-up today sitting up in bed appears to be breathing better. Patient is maintained on 2 L via nasal cannula and will require oxygen on discharge to be able to manage hypoxia secondary to influenza. Pulmonary following patient has patient has had improvement on incentive spirometer and displayed return demonstration on how she is using. Patient reaching 1500. Patient continues to be dyspneic although reports some improvement and chest x-ray was reviewed showing some improvement on the right. Patient is maintained on IV steroids along with DuoNeb treatments and antibiotics and will continue. Patient is afebrile denies chest pain or shortness of breath. No reports of nausea or vomiting noted patient is tolerating diet. Encouraged increased activity as tolerated. Encourage the patient to walk frequently in the room. Review of systems: Constitutional: No reports of fatigue, fever, or chills Cardiovascular: No reports of chest pain or palpitations Respiratory: No reports of worsening shortness of breath although reports cont inued shortness of breath and reports some improvement GI: No reports of nausea, vomiting, or diarrhea : No reports of dysuria or retention Neurovascular: No reports of weakness or numbness PHYSICAL EXAMINATION: GENERAL: The patient is alert and oriented x3,Well developed, well nourished. Cu rrently on 2L nasal cannula HEENT: Pupils are round and equally reacting to light. EOMI. No scleral icterus. No conjunctival pallor. Normocephalic, atraumatic. No pharyngeal erythema. No thyromegaly. CARDIOVASCULAR: S1 and S2 muffled PULMONARY: diminished breath sounds bilaterally, Coarse scattered rhonchi throughout ABDOMEN: Soft, nontender, nondistended, normoactive bowel sounds. No palpable organomegaly. MUSCULOSKELETAL: No joint swelling or deformity. EXTREMITIES: No cyanosis, clubbing, or pedal edema. NEUROLOGICAL: Gross neurological examination did not reveal any focal deficits. SKIN: No rashes. Assessment: Acute hypoxemic respiratory failure secondary to influenza A with pneumonia and sepsis currently requiring 4 L of nasal cannula Hyponatremia, hypovolemic, improving History of hypertension Fibromyalgia with chronic pain Gastroesophageal reflux disease Celiac disease Current tobacco use, 1 pack per day GI prophylaxis DVT prophylaxis Plan: Recommend continue ceftriaxone and Zithromax along with DuoNeb treatments. Pulmonary is following and maintained on 2 L via nasal cannula. Recommend weaning FiO2 as tolerated, patient will need home O2 to manage hypoxia secondary to influenza with pneumonia Sputum culture negative Recommend continued use of incentive spirometer and encourage the patient to continue with coughing and deep breathing. Infectious disease is following as well and patient will be continued on antibiotics Due to multiple complex medical issues, prognosis is guarded. Case management following an oxygen being arranged for home O2. Possible discharge in the next 24 hours The impression and plan of care has been dictated by Kaia García, Nurse Practitioner as directed. Dr. Macario MD I have performed a history and examination and MDM of this patient, discussed the same with the dictator, and agree with the dictator's assessment and plan as written ,documented as a scribe. Based on total visit time, I have performed more than 50% of the visit. Objective - Vital Signs Vital signs: Vital Signs Temp 98.1 F 07/12/22 14:00 Pulse 92 07/12/22 16:26 Resp 18 07/12/22 14:00 BP 117/68 07/12/22 14:00 Pulse Ox 96 07/12/22 14:00 FiO2 40 07/07/22 08:19 Intake & Output 07/11/22 07/12/22 07/12/22 18:59 06:59 18:59 Intake Total 360 Balance 360 Intake: Oral 360 Other: # Voids 1 1 - Labs CBC & Chem 7: 07/11/22 06:05 07/11/22 06:05 Labs: Microbiology - Last 24 Hours (Table) 07/06/22 23:00 Blood Culture - Preliminary Blood No Growth after 120 hours 07/06/22 23:16 Blood Culture - Preliminary Blood No Growth after 120 hours
[2022-07-12] MEDS: AMITRIPTYLINE HCL 10 MG TAB PO SCH (20:55)
[2022-07-12] MEDS: lisinopriL 20 MG TAB PO SCH (20:55)
[2022-07-12] MEDS: VENLAFAXINE HCL ER 150 MG CAP PO SCH (20:55)
[2022-07-12] MEDS: METOPROLOL SUCCINATE (ER) 100 MG TAB.ER.24H PO SCH (20:55)
[2022-07-12] MEDS: amLODIPine 5 MG TAB PO SCH (20:56)
[2022-07-12] MEDS: GABAPENTIN 300 MG CAP PO SCH (20:56)
--- NOTE | 2022-07-12 21:35 | P.PN ---
Subjective Progress Note Date: 07/12/22 Principal diagnosis: Pneumonia Patient is a 52-year-old female with a past medical history pertinent for hypertension GERD started having a problem with increasing shortness of breath and coughing symptom has been going on since , patient was diagnosed with acute influenza A at the outside facility and subsequently transferred to [facility] for management of underlying pneumonia. On today's evaluation that is 07/12/2022, the patient denies having any fever or chills, the patient is breathing more comfortably and the patient left lower chest pain has decreased intensity denies any worsening cough or sputum production no abdominal pain no diarrhea Objective - Vital Signs Vital signs: Vital Signs Temp 97.7 F 07/12/22 07:16 Pulse 92 07/12/22 11:47 Resp 18 07/12/22 07:16 BP 136/84 07/12/22 07:16 Pulse Ox 93 L 07/12/22 07:16 FiO2 40 07/07/22 08:19 Intake & Output 07/11/22 07/12/22 07/12/22 18:59 06:59 18:59 Intake Total 360 Balance 360 Intake: Oral 360 Other: # Voids 1 1 - Exam GENERAL DESCRIPTION: A middle-aged female lying in bed in no distress RESPIRATORY SYSTEM: Unlabored breathing , course breath sounds bilaterally HEART: S1 S2 regular rate and rhythm , ABDOMEN: Soft , no tenderness EXTREMITIES: No edema feet - Labs CBC & Chem 7: 07/11/22 06:05 07/11/22 06:05 Labs: Microbiology - Last 24 Hours (Table) 07/06/22 23:00 Blood Culture - Preliminary Blood No Growth after 120 hours 07/06/22 23:16 Blood Culture - Preliminary Blood No Growth after 120 hours Assessment and Plan (1) Influenza A Current Visit: Yes Status: Acute Code(s): J10.1 - FLU DUE TO OTH IDENT INF LUENZA VIRUS W OTH RESP MANIFEST SNOMED Code(s): 005113463 (2) Left lower lobe pneumonia Current Visit: Yes Status: Acute Code(s): J18.9 - PNEUMONIA, UNSPECIFIED ORGANISM SNOMED Code(s): 996826340 Plan: 1patient presented to hospital with increasing shortness of breath cough symptom has been going on for more than a week now this patient with likely acute influenza a and possible component of secondary bacterial pneumonia patient has been more than 5 days of symptom onset as well as influenza and not ideal candidate for Tamiflu which has been discontinued. 2patient did have a positive blood culture with Haemophilus at the outside facility blood culture done here are negative so far 3patient seemed to have shown clinical improvement on Rocephin to continue with the plan to finish therapy with oral Ceftin Time with Patient: Less than 30
[2022-07-12] MEDS: HYDROcodone/APAP 5-325MG 1 EACH TAB PO PRN (23:44)
[2022-07-13] MEDS: IPRATROPIUM-ALBUTEROL 3 ML NEB INHALATION SCH ×5 (00:34→15:39)
[2022-07-13] MEDS: methylPREDNISolone SOD SUCCI 125 MG/2 ML VIAL IV SCH ×2 (06:30→12:19)
[2022-07-13] MEDS: PANTOPRAZOLE 40 MG TABLET PO SCH (06:30)
[2022-07-13] MEDS ORDERED: AZITHROMYCIN 500 MG TAB PO SCH (09:00)
[2022-07-13] MEDS: polyethylene glycoL 3350 17 GM POWD.PACK PO SCH (09:57)
--- NOTE | 2022-07-13 13:09 | P.PN ---
Subjective Progress Note Date: 07/13/22 Influenza A positive, hypoxemia 52-year-old female who sees a family physician in [place], [place], who went to an outside hospital, i.e. [facility], for complaints of chest congestion, shortness of breath, cough, and generally just not feeling well. The patient has not been feeling well from the day before [place]. She is apparently seeing a number of different doctors at various facilities, and more recently, because of worsening symptoms, went to [facility], and was transferred d own to our hospital, for additional monitoring and management. The patient apparently did test positive for influenza A. Also, chest x-ray showed an extensive pneumonia, left lower lobe. She apparently was placed on BiPAP initially in the emergency room, with settings of 8 over 4 and 40%. She's currently on 4 L. We see her today in room #6, down in the emergency department. The patient is currently on Rocephin and Zithromax. We discontinue the Tamiflu. It is not indicated in this patient. She apparently has a history of gastroesophageal reflux disease, hypertension, fibromyalgia, chronic headache, and celiac disease. She is a previous smoker. White count 7.6, hemoglobin 11.1, hematocrit 33, and platelet count of 263,000. Sodium 132, potassium 3.4, chlorides 99, CO2 24, BUN 16, creatinine 0.41. Chest x-ray shows an extensive pneumonia, and the left midlung left lower lobe. She also may have a few scattered opacities in the right lower lobe. Progress note dated 07/08/2022. 52-year-old female seen in the emergency department, in consultation, yesterday. Please see the note above. Currently, the patient is on 5 L of oxygen. She's not receiving any IV fluids. She was admitted with a diagnosis of influenza A, and left lower lobe pneumonia. The patient is still having shortness of breath, chest congestion, and cough. White count 13.5, hemoglobin 9.9, hematocrit 29.6, and platelet count was 327,000. Sodium 133, potassium 3.8, chlorides 97, CO2 27, anion gap 9, BUN 14, creatinine 0.5. Pro-calcitonin level was 1.73. I'm evaluating this patient today on 07/09/2022 in follow-up on a general medical floor. Patient is currently resting comfortably, up in bed, on 4 L nasal cannula. Chest x-ray from today shows persistent but improved left mid to lower lung acute infiltrate and/or atelectasis with stable patchy right basilar atelectasis and/or limited infiltrate. There is slightly more prominent right supra regular acute infiltrate. There is a new small left pleural effusion. Sputum culture was negative. Blood culture shows no growth at 48 hours. CBC from today shows mild leukocytosis with a WBC count of 13.7, hemoglobin 10.1, hematocrit 29.6, platelets 373,000. Today shows a sodium of 133, potassium 3.7, chloride 94, serum CO2 30, BUN 9.4, creatinine 0.4, glucose 83. Procalcitonin from yesterday was quite high at 1.73. Patient completed his course of Zithromax, and is currently receiving Rocephin for empiric therapy. Patient has remained afebrile overnight. No IV maintenance fluids infusing. Continues receiving DuoNeb inhalation. Vital signs remain stable. 07/10/2021, the patient remains on 5 L of oxygen by nasal cannula. She is a chronic smoker. She denies having any form of chronic respiratory difficulties on outpatient basis. The patient was initially placed on a BiPAP and following that she was transitioned to 5 L O2 nasal cannula. She is positive for influenza. Her pro calcitonin level was also elevated at 1.7 and the patient was given a combination of Rocephin and Zithromax. Her breath sounds are still diminished. She is using the senna spirometer. She has a congested cough. Unable to bring up much of sputum at this point in time. Her recovery was extremely slow. She does have a pneumonia in her right upper lobe and left lower lobe and a CAT scan of the chest that was done outpatient basis showed extensive pneumonia in her left lower lobe. This was involving the posterior segment of the left lower lobe in addition to the lateral segments. Minimal inflammatory changes are also seen in the right lower lobe and upper lobes bilaterally. 07/11/2021, the patient is still struggling with her breathing. She is unable to fully expand as of October coughing spells. She has some chest congestion. Unable to bring up much of sputum. Her repeat chest x-ray showing persistent consolidation of the left lower lobe which is essentially unchanged. Nevertheless, her white cell count is currently down to 8 and her pro-calcitonin level has dropped down to 0.29. Sodium is at 133 with a potassium level of 3.9 and a bicarb is 95 with a bicarb bicarb of 27 with a chloride of 95. In terms of antibiotic management, the patient is currently covered with accommodation of Rocephin and Zithromax. She remains on DuoNeb nebulized treatments [id number], with also start solumedrol 07/12/2021, the patient continues to improve and she is currently on 2 L oxygen by nasal cannula. A short of breath. Aggressively using the incentive spirometer. No new labs are available from today. She remains on Rocephin and Zithromax and she is on DuoNeb and IV Solu-Medrol. She is currently on 2 L. No significant sputum production. No nausea or vomiting or diarrhea or abdominal pain. On 07/13/2021, the patient is feeling much better and she insists on going home. I think is reasonable. She is improved considerably. She is using the senna spirometer and she is falling approximately 1250. She is using the DuoNeb about treatments [id number]. She has home O2 and this has been arranged to her prior hospital. With activity she still desaturating and she was given a concentrator and portable tanks. She has blood work that shows improvement in the white cell count and the pro calcitonin level was also improving. Most recent chest x-ray from 07/12/2022 also showed a ongoing consolidation/Of the left lower lobe this is to be followed up on outpatient basis. Objective - Vital Signs Vital signs: Vital Signs Temp 97.4 F L 07/13/22 07:10 Pulse 86 07/13/22 12:02 Resp 16 07/13/22 07:10 BP 122/75 07/13/22 07:10 Pulse Ox 97 07/13/22 07:10 FiO2 40 07/07/22 08:19 Intake & Output 07/12/22 07/13/22 07/13/22 18:59 06:59 18:59 Other: # Voids 1 2 - Exam Alert, in no acute distress, oriented 3. The patient is currently on 2 L nasal cannula HEENT examination is grossly unremarkable. Neck supple. Full range of motion. No adenopathy thyromegaly or neck vein distention. Cardiovascular examination reveals regular rhythm rate. S1-S2 normal. No S3 or S4. No discernible murmur noted. Lungs reveal scattered bilateral rhonchi. Breath sounds equal bilaterally. Without wheezes. continues to have congested nonproductive cough. No accessory muscle use. On 4 L nasal cannula. Abdomen soft bowel sounds are heard. No masses or tenderness. Extremities are intact. No cyanosis clubbing or edema. Skin is without rash or lesion. Neurologic examination is brief but nonfocal. - Labs CBC & Chem 7: 07/11/22 06:05 07/11/22 06:05 Labs: Microbiology - Last 24 Hours (Table) 07/06/22 23:16 Blood Culture - Final Blood No Growth after 144 hours 07/06/22 23:00 Blood Culture - Final Blood No Growth after 144 hours Assessment and Plan Plan: Acute respiratory illness, secondary to influenza A infection, and left lower lobe pneumonia. Procalcitonin elevated at 1.73she, I believe this patient started off with an influenza infection should she obviously got infected with bacteria with an extensive left lower lobe pulmonary consolidation. For now, the patient is improving. She has been weaned down to 2 L of oxygen by nasal cannula. Acute hypoxemic respiratory failure, secondary to above. Clinically improving. Oxygen patient is also improving. History of hypertension. History of gastroesophageal reflux disease. History of fibromyalgia. History of chronic headache. History of celiac disease. Prior history of tobacco use. Plan: Clinically improving. The patient can be potentially discharged home today on a course of Ceftin, oxygen therapy, prednisone burst taper and albuterol HFA 2 puffs 4 times a day. She will use her incentive spirometer. She will need a follow-up on outpatient basis with repeat chest x-ray to make sure there is complete clearing of this left lower lobe pneumonia. This will be discussed with the medical team.
[2022-07-13] MEDS ORDERED: predniSONE 20 MG TAB PO SCH (14:00)
--- NOTE | 2022-07-13 14:48 | P.PN ---
Subjective Progress Note Date: 07/13/22 Principal diagnosis: Pneumonia Patient is a 52-year-old female with a past medical history pertinent for hypertension GERD started having a problem with increasing shortness of breath and coughing symptom has been going on since , patient was diagnosed with acute influenza A at the outside facility and subsequently transferred to [facility] for management of underlying pneumonia. On today's evaluation that is 07/13/2022, the patient remains to be afebrile, the patient is breathing comfortably on 2 L nasal cannula, the patient left lower chest pain has decreased intensity , the patient denies any worsening cough or sputum production no abdominal pain no diarrhea Objective - Vital Signs Vital signs: Vital Signs Temp 97.4 F L 07/13/22 07:10 Pulse 86 07/13/22 12:02 Resp 16 07/13/22 07:10 BP 122/75 07/13/22 07:10 Pulse Ox 97 07/13/22 07:10 FiO2 40 07/07/22 08:19 Intake & Output 07/12/22 07/13/22 07/13/22 18:59 06:59 18:59 Other: # Voids 1 2 - Exam GENERAL DESCRIPTION: A middle-aged female lying in bed in no distress RESPIRATORY SYSTEM: Unlabored breathing , course breath sounds bilaterally HEART: S1 S2 regular rate and rhythm , ABDOMEN: Soft , no tenderness EXTREMITIES: No edema feet - Labs CBC & Chem 7: 07/11/22 06:05 07/11/22 06:05 Labs: Microbiology - Last 24 Hours (Table) 07/06/22 23:16 Blood Culture - Final Blood No Growth after 144 hours 07/06/22 23:00 Blood Culture - Final Blood No Growth after 144 hours Assessment and Plan (1) Influenza A Current Visit: Yes Status: Acute Code(s): J10.1 - FLU DUE TO OTH IDENT INFLUENZA VIRUS W OTH RESP MANIFEST SNOMED Code(s): 137150639 (2) Left lower lobe pneumonia Current Visit: Yes Status: Acute Code(s): J18.9 - PNEUMONIA, UNSPECIFIED ORGANISM SNOMED Code(s): 691684189 Plan: 1patient presented to hospital with increasing shortness of breath cough sym ptom has been going on for more than a week now this patient with likely acute influenza a and possible component of secondary bacterial pneumonia patient has been more than 5 days of symptom onset as well as influenza and not ideal candidate for Tamiflu which has been discontinued. 2patient did have a positive blood culture with Haemophilus at the outside facility blood culture done here are negative so far 3patient has shown clinical improvement on Rocephin, will recommend 1 week course of oral Ceftin on discharge because of her bacteremia Time with Patient: Less than 30
[2022-07-13 14:57] VITALS: BP 121/69; PULSE 89; RESP 18; TEMP 97.8
== END 2022-07-13 15:49 | disposition home or self-care (01) | DRG 871 ==
LOC: EC 19:55 → 4SSUR 22:39
PROVIDERS: ADMIT Internal Medicine; ATTEND Internal Medicine
PROC: 5A09357 Assistance with Respiratory Ventilation, Less than 24 Consecutive Hours, Continuous Positive Airway Pressure (ICD-10-PCS; principal; 2022-07-06)
DX: A41.9 Sepsis, unspecified organism (principal); J10.00 Influenza due to other identified influenza virus with unspecified type of pneumonia; J96.01 Acute respiratory failure with hypoxia; E87.1 Hypo-osmolality and hyponatremia; K21.9 Gastro-esophageal reflux disease without esophagitis; K90.0 Celiac disease; M79.7 Fibromyalgia; E66.9 Obesity, unspecified; Z68.32 Body mass index [BMI] 32.0-32.9, adult; E86.1 Hypovolemia; E87.6 Hypokalemia; F17.210 Nicotine dependence, cigarettes, uncomplicated; G89.29 Other chronic pain; I10 Essential (primary) hypertension; Z82.49 Family history of ischemic heart disease and other diseases of the circulatory system; Z79.899 Other long term (current) drug therapy; Z28.310 Unvaccinated for COVID-19; Z28.21 Immunization not carried out because of patient refusal; Z88.5 Allergy status to narcotic agent; Z88.0 Allergy status to penicillin; Z88.8 Allergy status to other drugs, medicaments and biological substances
CPT/HCPCS: 36415; 71045; 80048; 80053; 82565; 83735; 84145; 85025; 86140; 87040; 87070; 87205; 93005; 94640; 94660; 94760; 96361; 96365; 96366; 96367; 96368; 96375; 99285

== ENCOUNTER 2023-01-28 23:01 | Observation (INO) | payer OTHER ==
[2023-01-28] MEDS ORDERED: ALBUTEROL NEBULIZED 2.5 MG/3 ML INHALATION STA (23:36)
[2023-01-28] MEDS ORDERED: IPRATROPIUM 0.5 MG/2.5 ML NEBU INHALATION STA (23:36)
[2023-01-28] MEDS ORDERED: SODIUM CHLORIDE 0.9% 1,000 ML IV STA (23:36)
--- NOTE | 2023-01-28 23:51 | XR ---
EXAM: XR Chest, 2 Views CLINICAL HISTORY: ITS.REASON XR Reason: cough TECHNIQUE: Frontal and lateral views of the chest. COMPARISON: No relevant prior studies available. FINDINGS: Lungs: Unremarkable. No consolidation. Pleural space: Unremarkable. No pneumothorax. Heart: Unremarkable. No cardiomegaly. Mediastinum: Unremarkable. Bones/joints: Unremarkable. IMPRESSION: No focal infiltrate.
--- NOTE | 2023-01-28 23:53 | ED ---
General Adult HPI - General Chief complaint: Shortness of Breath Stated complaint: Syncope, Nausea, Headache Time Seen by Provider: 01/28/23 23:15 Source: patient, RN notes reviewed, old records reviewed Mode of arrival: ambulatory Limitations: no limitations - History of Present Illness Initial comments: 52-year-old female with cough, dyspnea, chills or patient has had symptoms for approximately one week. She completed a course of oral antibiotic but has not improved. She had a prolonged admission with severe pneumonia within the last 1 year. She is on home oxygen at baseline. She has had some nausea without vomiting. Cough is productive. - Related Data Home Medications Medication Instructions Recorded Confirmed Gabapentin [Neurontin] 300 mg PO HS 08/17/15 07/06/22 Metoprolol Succinate [Toprol XL] 200 mg PO HS 08/17/15 07/06/22 Omeprazole [PriLOSEC] 20 mg PO BID 08/17/15 07/06/22 Amitriptyline HCl [Elavil] 10 mg PO HS 06/11/22 07/06/22 Venlafaxine HCl [Effexor XR] 150 mg PO HS 06/11/22 07/06/22 amLODIPine [Norvasc] 5 mg PO HS 06/11/22 07/06/22 lisinopriL 40 mg PO HS 06/11/22 07/06/22 Zolpidem [Ambien] 5 mg PO HS PRN 07/06/22 07/06/22 traMADol HCL 50 mg PO Q6H PRN 07/06/22 07/06/22 Previous Rx's Medication Instructions Recorded Albuterol Sulfate [Albuterol 2 puff PO Q6H PRN 30 Days #8.5 gm 07/13/22 Sulfate Hfa] cefUROXime axetiL [Ceftin] 500 mg PO BID 7 Days #14 tab 07/13/22 predniSONE See Taper PO DIRECTED #30 tab 07/13/22 Allergies Allergy/AdvReac Type Severity Reaction Status Date / Time oxytocin [From Pitocin] Allergy VERY Verified 01/28/23 23:13 HYPOTENSIVE Penicillins Allergy Anaphylaxis Verified 01/28/23 23:13 potassium Allergy Unknown Verified 01/28/23 23:13 Review of Systems ROS Statement: Those systems with pertinent positive or pertinent negative responses have been documented in the HPI. ROS Other: All systems not noted in ROS Statement are negative. Past Medical History Past Medical History: GERD/Reflux, Hypertension, Pneumonia Additional Past Medical History / Comment(s): FIBROMYALGIA, headache, cilliac History of Any Multi-Drug Resistant Organisms: None Reported Past Surgical History: Hysterectomy Past Anesthesia/Blood Transfusion Reactions: Postoperative Nausea & Vomiting (PONV) Past Psychological History: No Psychological Hx Reported Smoking Status: Former smoker Past Alcohol Use History: None Reported Past Drug Use History: None Reported - Past Family History Mother Family Medical History: Hypertension General Exam Limitations: no limitations General appearance: alert, in no apparent distress Head exam: Present: atraumatic, normocephalic Eye exam: Present: normal appearance, PERRL ENT exam: Present: normal exam Neck exam: Present: normal inspection. Absent: tenderness, meningismus Respiratory exam: Present: respiratory distress, rhonchi Cardiovascular Exam: Present: regular rate, normal rhythm GI/Abdominal exam: Present: soft. Absent: distended, tenderness Extremities exam: Present: normal inspection, normal capillary refill. Absent: pedal edema, calf tenderness Neurological exam: Present: alert, oriented X3, CN II-XII intact. Absent: motor sensory deficit Psychiatric exam: Present: normal affect, normal mood Skin exam: Present: warm, dry Course Vital Signs 01/28/23 01/29/23 01/29/23 23:10 00:47 01:07 Temperature 97.9 F Pulse Rate 91 81 84 Respiratory 20 Rate Blood Pressure 137/83 O2 Sat by Pulse 97 Oximetry Medical Decision Making - Medical Decision Making Was pt. sent in by a medical professional or institution (, PA, DIAGRAMMER, urgent care, hospital, or penitentiary...) When possible be specific @ -No Did you speak to anyone other than the patient for history (EMS, parent, family, police, friend...)? What history was obtained from this source @ -No Did you review nursing and triage notes (agree or disagree)? Why? @ -I reviewed and agree with nursing and triage notes Were old charts reviewed (outside hosp., previous admission, EMS record, old EKG, old radiological studies, urgent care reports/EKG's, penitentiary records)? Report findings @ -No old charts were reviewed Differential Diagnosis (chest pain, altered mental status, abdominal pain women, abdominal pain men, vaginal bleeding, weakness, fever, dyspnea, syncope, headache, dizziness, GI bleed, back pain, seizure, CVA, palpatations, mental health, musculoskeletal)? @ -[Differential Dyspnea: Coronary syndrome, arrhythmia, tamponade, asthma, COPD, pulmonary embolism, pneumonia, pneumothorax, pulmonary effusion, anaphylaxis, diabetic ketoacidosis, flailed chest, pulmonary contusion, diaphragmatic rupture, anemia, ne uromuscular, this is not meant to be an all-inclusive list. EKG interpreted by me (3pts min.). @ -Sinus rhythm rate of 83, OR interval 161, QRS duration 91, QTC 394, no ST segment changes. X-rays interpreted by me (1pt min.). @ -[No focal pneumonia CT interpreted by me (1pt min.). @ -None done U/S interpreted by me (1pt. min.). @ -None done What testing was considered but not performed or refused? (CT, X-rays, U/S, labs)? Why? @ -None What meds were considered but not given or refused? Why? @ -None Did you discuss the management of the patient with other professionals (professionals i.e. , PA, DIAGRAMMER, lab, RT, psych nurse, medical social consultant, horse stud manager, teacher, veterinary medical officer, high risk case manager)? Give summary @ -No Was smoking cessation discussed for >3mins.? @ -No Was critical care preformed (if so, how long)? @ -No Were there social determinants of health that impacted care today? How? (Homelessness, low income, unemployed, alcoholism, drug addiction, transportation, low edu. Level, literacy, decrease access to med. care, longterm, rehab)? @ -No Was there de-escalation of care discussed even if they declined (Discuss DNR or withdrawal of care, Hospice)? DNR status @ -No What co-morbidities impacted this encounter? (DM, HTN, Smoking, COPD, CAD, Cancer, CVA, ARF, Chemo, Hep., AIDS, mental health diagnosis, sleep apnea, morbid obesity)? @ -[COPD, pneumonia Was patient admitted / discharged? Hospital course, mention meds given and route, prescriptions, significant lab abnormalities, going to OR and other pertinent info. @ 52 -year-old female with 1 week of cough, chills, pneumonia. Patient has rh onchorous with bronchospastic cough bilaterally. Suspect a component of bronchospasm. She has not improved with oral antibiotics. She will be admitted for treatment of COPD. Possible developing pneumonia. Patient admitted to internal medicine with pulmonology on consult. Undiagnosed new problem with uncertain prognosis? @ -No Drug Therapy requiring intensive monitoring for toxicity (Heparin, Nitro, Insulin, Cardizem)? @ -No Were any procedures done? @ -No Diagnosis/symptom? @ -COPD, failed outpatient treatment Acute, or Chronic, or Acute on Chronic? @ -Acute Uncomplicated (without systemic symptoms) or Complicated (systemic symptoms)? @ -[Complicated Side effects of treatment? @ -No Exacerbation, Progression, or Severe Exacerbation? @ -No Poses a threat to life or bodily function? How? (Chest pain, USA, ID, pneumonia, PE, COPD, DKA, ARF, appy, cholecystitis, CVA, Diverticulitis, Homicidal, Suicidal, threat to staff... and all critical care pts) @ -[Yes, sepsis - Lab Data Result diagrams: 01/29/23 00:12 01/29/23 00:12 Lab Results 01/28/23 01/29/23 01/29/23 Range/Units 23:29 00:12 00:12 WBC 10.3 (3.8-10.6) k/uL RBC 4.23 (3.80-5.40) m/uL Hgb 13.0 (11.4-16.0) gm/dL Hct 40.0 (34.0-46.0) % MCV 94.5 (80.0-100.0) fL MCH 30.7 (25.0-35.0) pg MCHC 32.5 (31.0-37.0) g/dL RDW 12.1 (11.5-15.5) % Plt Count 479 H (150-450) k/uL MPV 7.8 Neutrophils % 67 % Lymphocytes % 27 % Monocytes % 4 % Eosinophils % 1 % Basophils % 0 % Neutrophils # 6.9 (1.3-7.7) k/uL Lymphocytes # 2.8 (1.0-4.8) k/uL Monocytes # 0.4 (0-1.0) k/uL Eosinophils # 0.1 (0-0.7) k/uL Basophils # 0.0 (0-0.2) k/uL PT 10.1 (9.0-12.0) sec INR 0.9 (<1.2) APTT 23.3 (22.0-30.0) sec Sodium (137-145) mmol/L Potassium (3.5-5.1) mmol/L Chloride (98-107) mmol/L Carbon Dioxide (22-30) mmol/L Anion Gap mmol/L BUN (7-17) mg/dL Creatinine (0.52-1.04) mg/dL Est GFR (CKD-EPI)AfAm (>60 ml/min/1.73 sqM) Est GFR (CKD-EPI)NonAf (>60 ml/min/1.73 sqM) Glucose (74-99) mg/dL Calcium (8.4-10.2) mg/dL Total Bilirubin (0.2-1.3) mg/dL AST (14-36) U/L ALT (4-34) U/L Alkaline Phosphatase (38-126) U/L NT-Pro-B Natriuret Pep pg/mL Total Protein (6.3-8.2) g/dL Albumin (3.5-5.0) g/dL Influenza Type A (PCR) Not Detected (Not Detectd) Influenza Type B (PCR) Not Detected (Not Detectd) RSV (PCR) Not Detected (Not Detectd) SARS-CoV-2 (PCR) Not Detected (Not Detectd) 01/29/23 Range/Units 00:12 WBC (3.8-10.6) k/uL RBC (3.80-5.40) m/uL Hgb (11.4-16.0) gm/dL Hct (34.0-46.0) % MCV (80.0-100.0) fL MCH (25.0-35.0) pg MCHC (31.0-37.0) g/dL RDW (11.5-15.5) % Plt Count (150-450) k/uL MPV Neutrophils % % Lymphocytes % % Monocytes % % Eosinophils % % Basophils % % Neutrophils # (1.3-7.7) k/uL Lymphocytes # (1.0-4.8) k/uL Monocytes # (0-1.0) k/uL Eosinophils # (0-0.7) k/uL Basophils # (0-0.2) k/uL PT (9.0-12.0) sec INR (<1.2) APTT (22.0-30.0) sec Sodium 129 L (137-145) mmol/L Potassium 4.1 (3.5-5.1) mmol/L Chloride 96 L (98-107) mmol/L Carbon Dioxide 22 (22-30) mmol/L Anion Gap 11 mmol/L BUN 15 (7-17) mg/dL Creatinine 0.48 L (0.52-1.04) mg/dL Est GFR (CKD-EPI)AfAm >90 (>60 ml/min/1.73 sqM) Est GFR (CKD-EPI)NonAf >90 (>60 ml/min/1.73 sqM) Glucose 105 H (74-99) mg/dL Calcium 9.0 (8.4-10.2) mg/dL Total Bilirubin 0.6 (0.2-1.3) mg/dL AST 21 (14-36) U/L ALT 18 (4-34) U/L Alkaline Phosphatase 81 (38-126) U/L NT-Pro-B Natriuret Pep 86 pg/mL Total Protein 7.1 (6.3-8.2) g/dL Albumin 3.9 (3.5-5.0) g/dL Influenza Type A (PCR) (Not Detectd) Influenza Type B (PCR) (Not Detectd) RSV (PCR) (Not Detectd) SARS-CoV-2 (PCR) (Not Detectd) Disposition Clinical Impression: Community acquired pneumonia, Acute exacerbation of chronic obstructive pulmonary disease Disposition: ADMITTED IP TO THIS HOSP Condition: Stable Is patient prescribed a controlled substance at d/c from ED?: No Time of Disposition: 01:15
[2023-01-29] MEDS ORDERED: NALOXONE 0.4 MG/ML 1 ML VIAL IVP PRN (00:19)
[2023-01-29] MEDS ORDERED: IPRATROPIUM-ALBUTEROL 3 ML NEB INHALATION PRN (00:19)
[2023-01-29] MEDS ORDERED: LEVOFLOXACIN 500MG-D5W PMX 500 MG in DEXTROSE/WATER 1 100ML.BAG IVPB STA (00:21)
[2023-01-29 00:28] LABS: Basophils % (A) 0 %; Eosinophils # (A) 0.1 k/uL (0-0.7); Eosinophils % (A) 1 %; Lymphocytes # (A) 2.8 k/uL (1.0-4.8); Lymphocytes % (A) 27 %; MCH 30.7 pg (25.0-35.0); MCHC 32.5 g/dL (31.0-37.0); MCV 94.5 fL (80.0-100.0); Mean Platelet Volume 7.8; Monocytes # (A) 0.4 k/uL (0-1.0); Monocytes % (A) 4 %; Neutrophils # (A) 6.9 k/uL (1.3-7.7); Neutrophils % (A) 67 %; Platelet Count 479 k/uL (150-450); RBC 4.23 m/uL (3.80-5.40); RDW 12.1 % (11.5-15.5); WBC 10.3 k/uL (3.8-10.6)
[2023-01-29 00:38] LABS: ALT 18 U/L (4-34); AST 21 U/L (14-36); African American GFR (CKD) >90 (>60 ml/min/1.73 sqM); Albumin 3.9 g/dL (3.5-5.0); Alkaline Phosphatase 81 U/L (38-126); Anion Gap 11 mmol/L; Blood Urea Nitrogen 15 mg/dL (7-17); Carbon Dioxide 22 mmol/L (22-30); Chloride 96 mmol/L (98-107); Glucose 105 mg/dL (74-99); Non-African American GFR(CKD) >90 (>60 ml/min/1.73 sqM); Potassium 4.1 mmol/L (3.5-5.1); Sodium 129 mmol/L (137-145); Total Bilirubin 0.6 mg/dL (0.2-1.3); Total Protein 7.1 g/dL (6.3-8.2)
[2023-01-29 00:46] LABS: INR 0.9 (<1.2); NT-Pro-B-Type Natriuretic Pept 86 pg/mL; Partial Thromboplastin Time 23.3 sec (22.0-30.0); Prothrombin Time 10.1 sec (9.0-12.0)
[2023-01-29] MEDS ORDERED: AZITHROMYCIN 500 MG TAB PO STA (02:21)
--- NOTE | 2023-01-29 02:43 | P.CNPUL ---
History of Present Illness Consult date: 01/29/23 Requesting physician: Raudel Thompson Reason for consult: COPD Chief complaint: Carol of breath and persistent cough for the last 2 weeks History of present illness: I am seeing this patient in new consultation today 01/29/2023 for an acute COPD the exacerbation. Patient is a 52-year-old white female with past medical history significant for moderate COPD with an FEV1 50% of predicted, hypertension, GERD, and fibromyalgia, and is a recent ex-smoker as of August of this year. Her primary care provider is Dr. England. Patient did have a hospital admission back in July 2022 for influenza and a superimposed pneumonia. She has followed up with Dr. Gorman in the office since then. She states that she only uses an as needed albuterol nebulization at home. Over the past 2 weeks, the patient has been experiencing progressively worsening shortness of breath accompanied by a productive cough with white to green sputum. She denies any fevers. She does state that she occasionally gets chilled and diaphoretic. She does have intermittent chest pain associated with her persistent cough. She did see her PCP on Friday, and was prescribed a combination of antibiotics and steroids. Since then, she has reported no improvement, and decided to come to the emergency room late last night. Patient is currently sitting up in bed, on 2 L/m nasal cannula, in no acute distress. Chest x-ray on arrival showed no focal infiltrates or evidence of pneumonia. CBC on arrival was unremarkable. No leukocytosis. BMP on arrival showed a sodium 129, potassium 4.1, chloride 96, serum bicarb 22, BUN 15, creatinine 0.48, glucose is 105. Normal saline is infusing at 130 ML's per hour. She was negative for influenza, RSV, COVID-19. Patient was given a dose of Levaquin in the emergency room. She is afebrile. She has been started on a combination of DuoNeb's and IV Solu-Medrol. She appears nontoxic and hemodynamically stable. She will be monitored on the general medical floor. Review of Systems REVIEW OF SYSTEMS: CONSTITUTIONAL: Denies any recent significant weight loss or weight gain. EYES: Denies change in vision. EARS, NOSE, MOUTH, THROAT: Denies headaches, denies sore throat. CARDIOVASCULAR: Denies radiating chest pain, palpitations, syncopal episodes, orthopnea, lower extremity swelling. Admits intermittent chest pain with coughing RESPIRATORY: See HPI GASTROINTESTINAL: Denies change in appetite, abdominal pain, nausea and vomiting, or diarrhea GENITOURINARY: Denies hematuria, denies infections. MUSKULOSKELETAL: Denies pain, denies swelling. INTEGUMENTARY: Denies rash, denies eczema. NEUROLOGICAL: Denies recent memory loss, no recent seizure activity. PSYCHIATRIC: Denies anxiety, denies depression. HEMATOLOGIC/LYMPHATIC: Denies anemia, denies enlarged lymph node Past Medical History Past Medical History: GERD/Reflux, Hypertension, Pneumonia Additional Past Medical History / Comment(s): FIBROMYALGIA, headache, celliac History of Any Multi-Drug Resistant Organisms: None Reported Past Surgical History: Hysterectomy Past Anesthesia/Blood Transfusion Reactions: Postoperative Nausea & Vomiting (PONV) Past Psychological History: No Psychological Hx Reported Smoking Status: Former smoker Past Alcohol Use History: None Reported Past Drug Use History: None Reported - Past Family History Mother Family Medical History: Hypertension Medications and Allergies Home Medications Medication Instructions Recorded Confirmed Type Gabapentin [Neurontin] 300 mg PO HS 08/17/15 07/06/22 History Metoprolol Succinate [Toprol XL] 200 mg PO HS 08/17/15 07/06/22 History Omeprazole [PriLOSEC] 20 mg PO BID 08/17/15 07/06/22 History Amitriptyline HCl [Elavil] 10 mg PO HS 06/11/22 07/06/22 History Venlafaxine HCl [Effexor XR] 150 mg PO HS 06/11/22 07/06/22 History amLODIPine [Norvasc] 5 mg PO HS 06/11/22 07/06/22 History lisinopriL 40 mg PO HS 06/11/22 07/06/22 History Zolpidem [Ambien] 5 mg PO HS PRN 07/06/22 07/06/22 History traMADol HCL 50 mg PO Q6H PRN 07/06/22 07/06/22 History Albuterol Sulfate [Albuterol 2 puff PO Q6H PRN 30 Days #8.5 gm 07/13/22 Rx Sulfate Hfa] cefUROXime axetiL [Ceftin] 500 mg PO BID 7 Days #14 tab 07/13/22 Rx predniSONE See Taper PO DIRECTED #30 tab 07/13/22 Rx Allergies Allergy/AdvReac Type Severity Reaction Status Date / Time oxytocin [From Pitocin] Allergy VERY Verified 01/28/23 23:13 HYPOTENSIVE Penicillins Allergy Anaphylaxis Verified 01/28/23 23:13 potassium Allergy Unknown Verified 01/28/23 23:13 Physical Exam Vitals: Vital Signs Temp Pulse Resp BP Pulse Ox 01/29/23 01:52 19 01/29/23 01:07 84 01/29/23 00:47 81 01/28/23 23:10 97.9 F 91 20 137/83 97 Intake and Output 01/28/23 01/28/23 01/29/23 14:59 22:59 06:59 Other: Voiding Method Toilet Weight 88.451 kg GENERAL EXAM: Alert, 52-year-old white female , comfortable in no apparent distress. HEAD: Normocephalic and atraumatic EYES: Normal reaction of pupils, equal size. NOSE: Clear with pink turbinates. THROAT: No erythema or exudates. NECK: No masses, no JVD. CHEST: No chest wall deformity. LUNGS: Equal air entry with scattered rhonchi. No significant wheezing, crackles, or focal dullness. On 2 L/m nasal cannula. No conversational dyspnea or accessory muscle use.. CVS: S1 and S2 normal with no audible murmur, regular rhythm. No extra heart sounds ABDOMEN: No hepatosplenomegaly, active bowel sounds, no guarding or rigidity. SPINE: No scoliosis or deformity SKIN: No rashes CENTRAL NERVOUS SYSTEM: No focal deficits, tone is normal in all 4 extremities. EXTREMITIES: There is no peripheral edema, clubbing, or cyanosis. Peripheral p ulses are intact. Results - Laboratory Findings CBC and BMP: 01/29/23 00:12 01/29/23 00:12 PT/INR, D-dimer PT 10.1 sec (9.0-12.0) 01/29/23 00:12 INR 0.9 (<1.2) 01/29/23 00:12 Abnormal lab findings: Abnormal Labs 01/29/23 01/29/23 00:12 00:12 Plt Count 479 H Sodium 129 L Chloride 96 L Creatinine 0.48 L Glucose 105 H - Diagnostic Findings Chest x-ray: image reviewed Assessment and Plan Assessment: Acute COPD exacerbation, secondary to suspected acute tracheobronchitis. Chest x-ray on arrival showed no focal infiltrates or evidence of pneumonia. Negative for influenza, RSV, COVID-19. Acute hypoxemic respiratory failure secondary to above Benign essential hypertension GERD without esophagitis Fibromyalgia Ex-smoker, as of August, Plan: Patient's medications, labs, chest x-ray reviewed Continue supplemental oxygen to maintain oxygen saturations of 92% or greater Start patient on a combination of DuoNeb's, Symbicort inhaler, and IV Solu- Medrol Continue empiric antibiotics Check procalcitonin level We will continue to follow and make recommendations I have personally seen and examined the patient, performed the documentation and the assessment and plan as written. Number of minutes spent on the visit:20 Time with Patient: Greater than 30
[2023-01-29] MEDS: ACETAMINOPHEN TAB 325 MG TAB PO PRN (05:40)
[2023-01-29] MEDS: methylPREDNISolone SOD SUCCI 125 MG/2 ML VIAL IV SCH ×4 (05:42→23:43)
[2023-01-29] MEDS: IPRATROPIUM-ALBUTEROL 3 ML NEB INHALATION SCH ×4 (09:35→21:35)
[2023-01-29] MEDS: SYMBICORT 160-4.5 MCG INHALER INHALATION SCH ×2 (09:35→21:35)
[2023-01-29] MEDS: GABAPENTIN 300 MG CAP PO SCH ×2 (09:52→19:44)
[2023-01-29] MEDS: FAMOTIDINE 20 MG TAB PO SCH ×2 (09:52→19:44)
--- NOTE | 2023-01-29 10:06 | P.HPIM ---
History of Present Illness This is a pleasant 52 years old female with past medical history of hypertension, fibromyalgia, headache, gastroesophageal reflux disease Patient states that for the last 10 days she's been having shortness of breath, she says last week she was diagnosed with pneumonia and she was treated with antibiotic for about a week bouts now she still having shortness of breath. She still coughing green phlegm. However there is no significant wheezing. She is currently saturating 99% on 2 L, afebrile. Vitals stable and currently she is saturating 99% on 2 L oxygen via nasal cannula, rest of Vitas looks stable and patient is afebrile she is mildly tachypneic 20 breaths per minute CBC showing unremarkable results except for mildly elevated platelet count, sodium 129, her sodium. Liver enzymes were unremarkable Viruses R undetected including influenza, RSV and Covid EKG showing normal sinus rhythm at [address]-T changes Chest x-ray: No acute process Review of Systems Review of systems CONSTITUTIONAL: No fever, no malaise, no fatigue. HEENT: No recent visual problems or hearing problems. Denied any sore throat. CARDIOVASCULAR: No orthopnea, PND, no palpitations, no syncope. -PULMONARY: No chest wall tenderness, no cough, no hemoptysis. GASTROINTESTINAL: No diarrhea, no nausea, no vomiting, no abdominal pain. Normoactive bowel sounds. NEUROLOGICAL: No headaches, no weakness, no numbness. HEMATOLOGICAL: Denies any bleeding or petechiae. GENITOURINARY: Denies any burning micturition, frequency, or urgency. MUSCULOSKELETAL/RHEUMATOLOGICAL: Denies any joint pain, swelling, or any muscle pain. ENDOCRINE: Denies any polyuria or polydipsia. Past Medical History Past Medical History: GERD/Reflux, Hypertension, Pneumonia Additional Past Medical History / Comment(s): FIBROMYALGIA, headache, celliac History of Any Multi-Drug Resistant Organisms: None Reported Past Surgical History: Hysterectomy Past Anesthesia/Blood Transfusion Reactions: Postoperative Nausea & Vomiting (PONV) Past Psychological History: No Psychological Hx Reported Smoking Status: Former smoker Past Alcohol Use History: None Reported Past Drug Use History: None Reported - Past Family History Mother Family Medical History: Hypertension Medications and Allergies Home Medications Medication Instructions Recorded Confirmed Type Gabapentin [Neurontin] 300 mg PO BID 08/17/15 01/29/23 History Metoprolol Succinate [Toprol XL] 200 mg PO HS 08/17/15 01/29/23 History Omeprazole [PriLOSEC] 20 mg PO BID 08/17/15 01/29/23 History Venlafaxine HCl [Effexor XR] 150 mg PO HS 06/11/22 01/29/23 History amLODIPine [Norvasc] 5 mg PO HS 06/11/22 01/29/23 History lisinopriL 40 mg PO HS 06/11/22 01/29/23 History Allergies Allergy/AdvReac Type Severity Reaction Status Date / Time Penicillins Allergy Anaphylaxis Verified 01/29/23 07:41 potassium Allergy Unknown Verified 01/29/23 07:41 oxytocin [From Pitocin] AdvReac VERY Verified 01/29/23 07:41 HYPOTENSIVE Physical Exam Vitals: Vital Signs Temp Pulse Pulse Resp BP BP Pulse Ox 01/29/23 09:35 68 18 98 01/29/23 07:17 98.0 F 66 15 111/71 99 01/29/23 02:00 98.3 F 83 18 112/74 97 01/29/23 01:52 19 01/29/23 01:07 84 01/29/23 00:47 81 01/28/23 23:10 97.9 F 91 20 137/83 97 Intake and Output 01/28/23 01/29/23 01/29/23 22:59 06:59 14:59 Intake Total 2300 Balance 2300 Intake: Intake, IV Titration 2060 Amount Levofloxacin 500Mg-D5w 500 Pmx 500 mg In Dextrose/ Water 1 100ml.bag @ 100 mls/hr IVPB ONCE STA Rx#: [id number] Sodium Chloride 0.9% 1, 1560 000 ml @ 130 mls/hr IV . Q7H42M STA Rx#:[id number] Oral 240 Other: Voiding Method Toilet # Voids 2 Weight 88.451 kg GENERAL: The patient is alert and oriented x3, not in any acute distress. Well developed, well nourished. HEENT: Pupils are round and equally reacting to light. EOMI. No scleral icterus. No conjunctival pallor. Normocephalic, atraumatic. No pharyngeal erythema. No thyromegaly. CARDIOVASCULAR: S1 and S2 present. No murmurs, rubs, or gallops. -PULMONARY: Chest is clear to auscultation, Bilateral scattered wheezing , no crackles. ABDOMEN: Soft, nontender, nondistended, normoactive bowel sounds. No palpable organomegaly. MUSCULOSKELETAL: No joint swelling or deformity. EXTREMITIES: No cyanosis, clubbing, or pedal edema. NEUROLOGICAL: Gross neurological examination did not reveal any focal deficits. SKIN: No rashes. no petechiae. Results CBC & Chem 7: 01/29/23 00:12 01/29/23 00:12 Labs: Abnormal Lab Results - Last 24 Hours (Table) 01/29/23 01/29/23 Range/Units 00:12 00:12 Plt Count 479 H (150-450) k/uL Sodium 129 L (137-145) mmol/L Chloride 96 L (98-107) mmol/L Creatinine 0.48 L (0.52-1.04) mg/dL Glucose 105 H (74-99) mg/dL Thrombosis Risk Factor Assmnt - Choose All That Apply Any of the Below Risk Factors Present?: Yes Each Factor Represents 1 point: Abnormal pulmonary function (COPD) Other Risk Factors: No Other congenital or acquired thrombophilia - If yes, enter type in comment: No Thrombosis Risk Factor Assessment Total Risk Factor Score: 1 Thrombosis Risk Factor Assessment Level: Low Risk Assessment and Plan Assessment: Possible acute tracheobronchitis, infectious Possible Acute COPD exacerbation Hypertension History of GERD History of fibromyalgia History of headache Plan: continue with IV Solu-Medrol Continue with Zithromax Continue with a breathing treatment and a bronchodilator Pulmonary consult Labs and medication were reviewed.. Continue same treatment. Continue with symptomatic treatment. Resume home medication. Monitor labs and vitals. DVT and GI prophylaxis. Further recommendations as per clinical course of the patient DVT prophylaxis: Subcutaneous heparin GI Prophylaxis: Pepcid PT/OT: Pending Prognosis is guarded
[2023-01-29] MEDS: HEPARIN SODIUM,PORCINE/PF 5,000 UNIT/0.5 ML SYRINGE SQ SCH (19:44)
[2023-01-29] MEDS ORDERED: amLODIPine 5 MG TAB PO SCH (21:00)
[2023-01-29] MEDS ORDERED: VENLAFAXINE HCL ER 150 MG CAP PO SCH (21:00)
[2023-01-30] MEDS: ACETAMINOPHEN TAB 325 MG TAB PO PRN ×2 (04:32→09:24)
[2023-01-30] MEDS: methylPREDNISolone SOD SUCCI 125 MG/2 ML VIAL IV SCH (06:35)
[2023-01-30 07:53] VITALS: BP 150/84; RESP 18; TEMP 98
[2023-01-30] MEDS: SYMBICORT 160-4.5 MCG INHALER INHALATION SCH (08:24)
[2023-01-30] MEDS: IPRATROPIUM-ALBUTEROL 3 ML NEB INHALATION SCH ×2 (08:24→11:12)
[2023-01-30] MEDS ORDERED: AZITHROMYCIN 250 MG TAB PO SCH (09:00)
[2023-01-30] MEDS: GABAPENTIN 300 MG CAP PO SCH (10:11)
[2023-01-30] MEDS: FAMOTIDINE 20 MG TAB PO SCH (10:11)
[2023-01-30] MEDS: HEPARIN SODIUM,PORCINE/PF 5,000 UNIT/0.5 ML SYRINGE SQ SCH (10:11)
[2023-01-30 11:25] VITALS: PULSE 74
[2023-01-30 14:25] LABS: Blood Urea Nitrogen 5.4 mg/dL (9.0-27.0); Calcium 9.6 mg/dL (8.7-10.3); Carbon Dioxide 22.8 mmol/L (21.6-31.8); Chloride 100 mmol/L (96-109); Glucose 166 mg/dL (70-110); Sodium 135 mmol/L (135-145)
[2023-01-30 16:00] LABS: Basophils # (A) 0.02 X 10*3/uL (0.00-0.10); Basophils % (A) 0.2 %; Eosinophils # (A) 0 X 10*3/uL (0.04-0.35); Eosinophils % (A) 0 %; HCT 33.2 % (37.2-46.3); HGB 10.8 d/dL (12.0-15.0); Lymphocytes # (A) 1.24 X 10*3/uL (0.90-5.00); Lymphocytes % (A) 10.4 %; MCHC 32.5 d/dL (32.0-37.0); MCV 98.2 FL (80.0-97.0); Mean Platelet Volume 9.7 FL (9.5-12.2); Monocytes # (A) 0.24 X 10*3/uL (0.20-1.00); NRBC Per 100 WBC 0 X 10*3/uL (0.00-0.01); Neutrophils # (A) 10.33 X 10*3/uL (1.80-7.70); Platelet Count 481 X 10*3/uL (140-440); RBC 3.38 X 10*6/uL (4.10-5.20); RDW 12.2 % (11.5-14.5); WBC 11.88 X 10*3/uL (4.50-10.00)
--- NOTE | 2023-01-30 17:48 | PN ---
PROGRESS NOTE DATE OF SERVICE: 01/30/2023 This is a Pulmonary/Critical Care Progress Note. SUBJECTIVE: This is a 52-year-old female, who was seen in consultation for a COPD exacerbation. The patient did not have evidence of pneumonia on chest x-ray. She did test negative for influenza, RSV, and coronavirus infection. She has a history of COPD, hypoxemic respiratory failure, hypertension, GERD without esophagitis, fibromyalgia, and previous tobacco use, although she quit in August 2022. The patient was seen and doing relatively well today. The patient was on 2 L of oxygen. She was not receiving any IV fluids. I told the patient that she could be discharged home today. LABORATORY DATA: Today included sodium 135, potassium 4, chloride 100, CO2 of 23, anion gap 12, BUN 5.4, and creatinine 0.6. OBJECTIVE: VITAL SIGNS: Reviewed. The patient's temperature was normal. 2 L saturation was 96%. Heart rate was 74, respiratory rate was 16, and blood pressure was 124/72. GENERAL: She appeared in no acute distress. No respiratory distress. No conversational dyspnea. No use of accessory muscles. HEENT: Grossly unremarkable. NECK: Supple, full range of motion. No adenopathy or thyromegaly. Neck veins are flat. CARDIOVASCULAR: Reveals regular rhythm and rate. Heart rate 72 beats per minute. S1 and S2 are normal. There is no murmur. LUNGS: Reveal relatively clear, but diminished breath sounds. Minimal rhonchi noted. No wheezes or crackles. ABDOMEN: Soft. Bowel sounds are heard. EXTREMITIES: Intact. No cyanosis, clubbing, or edema. SKIN: Without rash. NEUROLOGIC: Brief, but nonfocal. ASSESSMENT: 1. Acute exacerbation of chronic obstructive pulmonary disease, not triggered by significant pneumonia, but possibly triggered by tracheobronchitis. 2. Acute hypoxemic respiratory failure. 3. Benign essential hypertension. 4. Gastroesophageal reflux disease without esophagitis. 5. Fibromyalgia. 6. Previous history of tobacco use, quit in August 2022. PLAN: The patient is doing well. She will follow up in our office after discharge, if she is discharged home today. The patient does not need any refills on medications. We remind her about the proper use of her medications. Additional recommendations and suggestions are forthcoming. Prognosis is guarded. No additional recommendations at this time. MMODL / IJN: [id number] /
--- NOTE | 2023-02-10 13:50 | DS ---
DISCHARGE SUMMARY FINAL DIAGNOSES: 1. Chronic obstructive pulmonary disease acute exacerbation with acute tracheobronchitis. 2. Hypertension. 3. Gastroesophageal reflux disease. 4. Fibromyalgia. 5. History of headaches. DISCHARGE DISPOSITION: The patient will be discharged in stable condition with guarded prognosis. HISTORY OF PRESENT ILLNESS: This is a 52-year-old woman with a past medical history of multiple problems including COPD acute exacerbation, acute tracheobronchitis. The patient was given intensive bronchodilators, steroids, and antibiotics. Dr. Thakur saw the patient, cleared the patient for discharge. The patient will be discharged in stable condition and guarded prognosis. The patient will be discharged on bronchodilators and tapering steroids. Please see the discharge reconciliation sheet for list of medications. MMODL / IJN: [id number] /
== END 2023-01-30 14:20 | disposition home or self-care (01) ==
LOC: EC 23:01 → INTOOBSV 01-29 00:21 → 4SSUR 01-29 00:21
PROVIDERS: ADMIT Internal Medicine; ATTEND Internal Medicine
DX: J44.1 Chronic obstructive pulmonary disease with (acute) exacerbation (principal); J20.9 Acute bronchitis, unspecified; J44.0 Chronic obstructive pulmonary disease with (acute) lower respiratory infection; I10 Essential (primary) hypertension; R51.9 Headache, unspecified; K21.9 Gastro-esophageal reflux disease without esophagitis; M79.7 Fibromyalgia; Z87.891 Personal history of nicotine dependence; J96.01 Acute respiratory failure with hypoxia; Z90.710 Acquired absence of both cervix and uterus; Z87.01 Personal history of pneumonia (recurrent); Z79.899 Other long term (current) drug therapy; Z88.0 Allergy status to penicillin; Z88.8 Allergy status to other drugs, medicaments and biological substances; Z82.49 Family history of ischemic heart disease and other diseases of the circulatory system
CPT/HCPCS: 96376 ×2; 96361 ×2; 96372 ×2; 96375; 96365; 99285; 36415; 94640 ×4; 94760 ×2; 93005; 83880; 80053; 80048; 83605; 85025 ×2; 85610; 85730; 87040; 84145; 87636; 71046; G0378; J2930 ×2; J1956; J1644 ×2

== ENCOUNTER → 2024-04-06 | Outpatient (CLI) | payer OTHER ==
--- NOTE | 2024-04-06 14:47 | XR ---
EXAMINATION TYPE: XR ribs RT w pa chest xray DATE OF EXAM: 04/06/2024 COMPARISON: NONE HISTORY: Pain TECHNIQUE: Single view of the chest 4 views of the ribs are submitted. FINDINGS: The lungs are clear. No Evidence for pneumothorax. No evidence for focal contusion. Medi astinal structures are midline. Evaluation of the ribs fails to demonstrate evidence for displaced r ib fracture or secondary sign of rib fracture. IMPRESSION: Negative study [facility], , 04/06/2024 2:45 PM
== END | disposition home or self-care (01) ==
LOC: RADXRYALE 14:09
PROVIDERS: ATTEND Nurse Practitioner
DX: R07.82 Intercostal pain (principal)

== ENCOUNTER → 2024-11-16 | Outpatient (CLI) | payer OTHER ==
--- NOTE | 2024-11-16 08:53 | MR ---
EXAMINATION TYPE: MR brain wo/w con DATE OF EXAM: 11/16/2024 6:59 AM COMPARISON: 06/10/2015 CLINICAL INDICATION: Female, 54 years old with history of R53.1 WEAKNESS R20.0 ANESTHESIA OF SKIN, We akness, tingling and numbness in legs and feet, blurred vision IV Contrast: 9ml cc Gadobutrol (None if empty) TECHNIQUE: Multiplanar, multisequence images of the brain and brainstem were acquired before and aft er administration of 9ml mL IV Gadobutrol. Diffusion weighted imaging is performed. FINDINGS: No evidence for acute infarction, hemorrhage, mass, mass effect, midline shift, herniation, effacemen t of basal cisterns, or extra-axial fluid collection. The ventricles and sulci are age-appropriate. Major intracranial flow voids are intact. T2/FLAIR weighted sequences again show mild to moderate scattered foci of bright signal change throug hout the subcortical, deep white matter, and periventricular regions of both cerebral hemispheres, la rgest focus measuring 6 mm. Overall similar appearance compared to the 2014 exam. A few lesions such as in the lateral left frontal lobe, axial image 21 may be slightly larger currently 6 mm versus 4 mm previously. Small perivascular spaces in the bilateral basal ganglia. Midline structures demonstrate normal morphology. The craniocervical junction is normal. Post contrast images demonstrate no evidence of pathologic enhancement. Dural venous sinuses are pat ent. Rightward nasal septal deviation with a mild to moderate mucosal thickening ethmoid air cells. Globes are intact. Some fluid noted scattered within the bilateral mastoid air cells. IMPRESSION: 1. Chronic T2 bright white matter changes with mild to moderate scattered burden, overall unchanged. However, a few lesions may be minimally larger. Consider sequela of chronic migraines. Demyelinating disease, chronic hypertension, and early changes of chronic small vessel ischemic disease are also co nsiderations. 2. No enhancing lesions or acute intracranial abnormality seen. 3. Mild chronic ethmoid sinus disease. Additionally, there is some scattered fluid in the mastoid air cells. Correlate for any mastoid pain to exclude mastoiditis. [facility], , 11/16/2024 8:50 AM
== END | disposition home or self-care (01) ==
LOC: RADMRIMAIN 05:59
PROVIDERS: ATTEND Family Medicine
DX: J32.2 Chronic ethmoidal sinusitis (principal); G37.9 Demyelinating disease of central nervous system, unspecified; R20.0 Anesthesia of skin
CPT/HCPCS: 70553; A9585